=== PATIENT | male | born 1935 | race Caucasian/White ===

== ENCOUNTER 2022-05-07 10:49 | Outpatient (NON) | payer MEDICARE, SELFPAY | END 2022-05-07 10:50 | disposition home or self-care (01) | LOC: ANHLAB 05-08 10:53 | PROVIDERS: PCP Internal Medicine; Visit Provider Nurse Practitioner | DX: C44.01 Basal cell carcinoma of skin of lip (principal) | CPT/HCPCS: 88305 ==

== ENCOUNTER 2022-06-04 14:18 | Outpatient (NON) | payer MEDICARE, SELFPAY | END 2022-06-04 14:19 | disposition home or self-care (01) | LOC: ANHLAB 14:18 | PROVIDERS: PCP Internal Medicine; Visit Provider Nurse Practitioner | DX: C44.02 Squamous cell carcinoma of skin of lip (principal) | CPT/HCPCS: 88305; 88331 ==

== ENCOUNTER 2022-06-15 14:21 | Inpatient (IN) | payer MEDICARE, SELFPAY ==
--- NOTE | ~2022-06-15 | XR_ITS ---
EXAMINATION: XR surgery orthopedic DATE: 06/16/2022 8:00 MEDICAL MASSAGE THERAPIST INDICATION: RIGHT HIP PINNING WITH DHS . TECHNIQUE: 8 fluoroscopic images of the right hip were obtained during right hip pinning with DHS per formed by the surgeon. I was not present in the operating room. Fluoroscopy exposure time was 1 minut e 8 seconds seconds. Air Kerma 20.110 mGy. DAP 0.3987 mGym2. COMPARISON: X-ray dated 06/15/2022 FINDINGS: Multiple fluoroscopic images demonstrate hardware fixation of the right intertrochanteric fracture. IMPRESSION: Fluoroscopic documentation of right hip pinning with DHS. Please refer to the operative note for comp lete procedural details . Reviewed, dictated and finalized at location K. CAL MASSAGE THERAPIST IMPRESSION: Fluoroscopic documentation of right hip pinning with DHS. Please refer to the o perative note for complete procedural details .
--- NOTE | ~2022-06-15 | XR_ITS ---
EXAMINATION: XR hip RT 2V w AP pelvis DATE: 06/15/2022 15:13 INDICATION: Right hip pain post fall TECHNIQUE: Anteroposterior view of the pelvis and anteroposterior and cross-table lateral views of th e right hip were obtained. COMPARISON: None. FINDINGS: Oblique intratrochanteric fracture of the proximal right femur. There is minimal medial angulation wi th mild widening of the superolateral side of the fracture plane and measures approximately 7 mm and 4 mm separation at the inferomedial margin of the fracture. Left total hip arthroplasty in near-anatomic alignment. No other fractures identified. Mild osteoarth ritis at the right hip. 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 Brachytherapy seeds a t the prostate. IMPRESSION: 1. Minimal medial angulation of a nondisplaced intertrochanteric fracture the proximal right femur. Reviewed, dictated and finalized at location A. RACTOR BUYER IMPRESSION: 1. Minimal medial angulation of a nondisplaced intertrochanteric fracture the p roximal right femur.
--- NOTE | ~2022-06-15 | XR_ITS ---
EXAMINATION: XR chest 1V portable DATE: 06/15/2022 16:43 INDICATION: Chronic lymphocytic leukemia. Preop. TECHNIQUE: A single frontal view of the chest was obtained on 2 radiographs. COMPARISON: None. 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 There is mild elevation of left hemidiaphragm. There is mild atelectasis at the lung bases. No pleural effusion or pneumothorax. The heart size is normal. IMPRESSION: 1. Mild atelectasis at the lung bases. Reviewed, dictated and finalized at location A. RNET PROJECT MANAGER
--- NOTE | ~2022-06-15 | XR_ITS ---
EXAMINATION: XR knee RT 3V DATE: 06/15/2022 15:22 INDICATION: Right knee pain TECHNIQUE: Three views of the right knee were obtained. COMPARISON: 08/18/2018 FINDINGS: Again noted are changes of medial compartment arthroplasty. There is partial separation of the femoral component from the medial femoral condyle. There is no fracture. There is mild osteoarthr itis of the lateral and patellofemoral compartments. No joint effusion/synovitis. Calcified atherosc lerosis is noted. IMPRESSION: 1. Changes of medial compartment arthroplasty with partial separation of the femoral component from t he medial femoral condyle. Reviewed, dictated and finalized at location B. IGN BANKNOTE TELLER TRADER IMPRESSION: 1. Changes of medial compartment arthroplasty with partial separation of the fe moral component from the medial femoral condyle.
[2022-06-15 14:21] VITALS: BP 146/62; PULSE 93; RESP 18; TEMP 36.6; O2SAT 100
--- NOTE | 2022-06-15 14:50 | ED.FALL ---
HPI - Fall General Chief Complaint: Fall Stated Complaint: fall, hip and knee pain Time Seen by Provider: 06/15/22 14:40 History of Present Illness HPI Narrative: 86-year-old male here for evaluation of right hip pain and knee pain after a fall today. Patient states that he was reaching up to put a box of [employer] decorations away, when he lost his footing and fell backwards, striking his right hip and his right knee against the ground. He denies head injury or loss of consciousness. Patient states that he has been unable to bear weight ever since the accident and reports pain in his right SI region. Attempted Aleve without relief of his pain. Related Data Allergies Allergy/AdvReac Type Severity Reaction Status Date / Time No Known Allergies Allergy Unverified 07/04/18 10:50 Review of Systems Review of Systems: Gen.: Denies fevers or chills Eyes: Denies eye pain or visual change ENT: Denies congestion Respiratory: Denies shortness of breath or cough CV: Denies chest pain or palpitations GI: Denies abdominal pain nausea, emesis or diarrhea denies burning, urgency, frequency or hematuria Musculoskeletal: Reports right hip and low back pain. Neuro: Denies numbness, tingling, weakness or focal weakness Skin: Denies rash Except as documented, all other systems reviewed and negative PMFSH Past Medical History Medical History Closed intertrochanteric fracture of right femur Over weight Surgical History Surgical History History of right knee joint replacement Family History Family History Mother Family history of arthritis Social History Social History Smoking status: Never smoker Alcohol intake: current Exam Narrative: APPEARANCE: Well appearing, no pain in distress, well-nourished. Head: Normocephalic and atraumatic. EYES: PERRLA/EOMI, conjunctivae clear NOSE: No nasal drainage EARS: External ear normal in appearance THROAT: Oropharynx is clear. Mucous membranes are moist. NECK: Supple. No adenopathy, no masses. RESPIRATORY: Airway patent, respirations nonlabored. Clear to auscultation bilaterally, no rales, rhonchi, wheezing. CARDIOVASCULAR: 2+ DP and PT pulses bilaterally. Regular rate and rhythm without murmurs, rubs, or gallops. ABDOMINAL: Normoactive bowel sounds. Soft, nontender, nondistended. No rebound tenderness or guarding. MUSCULOSKELETAL: No bony tenderness to palpation along right hip, C, T or L-spine. Venous stasis changes noted to bilateral lower extremities, no edema. NEURO: Normal speech. No focal neurologic deficits. SKIN: Skin is warm and dry. No rashes. PSYCHIATRIC: Normal affect/mood.. Course Vital Signs Vital signs: Vital Signs Temperature 97.8 F 06/15/22 14:21 Pulse Rate 93 06/15/22 14:21 Respiratory Rate 18 06/15/22 14:21 Blood Pressure 146/62 H 06/15/22 14:21 Pulse Oximetry 100 06/15/22 14:21 Oxygen Delivery Room Air 06/15/22 14:21 Temperature 97.8 F 06/15/22 14:21 Pulse Rate 93 06/15/22 14:21 Respiratory Rate 18 06/15/22 14:21 Blood Pressure 146/62 H 06/15/22 14:21 Pulse Oximetry 100 06/15/22 14:21 Oxygen Delivery Room Air 06/15/22 14:21 MDM - Fall MDM Narrative Medical decision making narrative: 86-year-old male here for evaluation of right hip and knee pain after what sounds like a mechanical fall today. He has no bony tenderness to palpation but is unable to stand due to pain, no pain at rest. Neurovascularly intact distal to the area of pain. Patient has evidence of a nondisplaced intertrochanteric fracture of the right proximal femur. Spoke with Dr. Conley who agrees with plan for admission, will likely need ORIF. We will keep n.p.o. at midnight and place Garcia catheter. Spoke with Eli
--- NOTE | 2022-06-15 16:42 | ECG_ITS ---
Measurements Intervals [place] Rate: 85 P: MT: 0 QRS: 72 QRSD: 104 T: 35 QT: 354 QTc: 421 Interpretive Statements ATRIAL FIBRILLATION ABNORMAL RHYTHM ECG NO PREVIOUS ECG AVAILABLE FOR COMPARISON Electronically Signed On 06-16-2022 9:41:23 CVICU RN by Lowell Ray M.D.
--- NOTE | 2022-06-15 16:43 | P.PNAN_ITS ---
Anes - Eval Pre Procedure Procedure: Operation Date: 06/16/22 07:30 Proposed Procedures p ORIF Hip with DHS(Right) - Nacho Conley MD Date/Time: 06/15/22 16:43 Preop Diagnosis: Right hip IT Fracture Pre Op Diagnosis: fall, hip and knee pain Patient Data Age: 86 Gender: M Height: 1.88 m Weight: 90 kg Last Vital Signs Temp 97.8 F 06/15/22 14:21 Pulse 93 06/15/22 14:21 Resp 18 06/15/22 14:21 BP 146/62 H 06/15/22 14:21 Pulse Ox 100 06/15/22 14:21 O2 Del Method Room Air 06/15/22 14:21 Allergies Allergy/AdvReac Type Severity Reaction Status Date / Time No Known Allergies Allergy Unverified 07/04/18 10:50 Laboratory Tests 06/15/22 16:23 Influenza A (RT-PCR) Pending Influenza B (RT-PCR) Pending SARS-CoV-2 RNA (RT-PCR) Pending Patient hx anesthesia problems: none Family hx anesthesia problems: none Results Review: All pre-operative results and documents have been reviewed as part of the pre- operative evaluation. [facility] Past Medical History Medical History Closed intertrochanteric fracture of right femur Over weight Surgical History Surgical History History of right knee joint replacement Family History Family History Mother Family history of arthritis Social History Social History Smoking status: Never smoker Alcohol intake: current Exam Day of Procedure 06/15/22 16:43 Patient weight: overweight Neurological: alert and oriented
[2022-06-15 17:05] LABS: Influenza A QL RT-PCR Negative (Negative); Influenza B QL RT-PCR Negative (Negative); SARS-CoV-2 RNA PCR Negative
--- NOTE | 2022-06-15 17:07 | P.CONOP_ITS ---
Assessment and Plan Assessment and plan (1) Closed intertrochanteric fracture of right femur: Code(s): S72.141A - Displaced intertrochanteric fracture of right femur, initial encounter for closed fracture Status: Acute Plan Displaced intertrochanteric fracture, right hip. Good bone quality and anatomic reduction possible. Remarkably healthy. I reviewed the proposed procedure. Risks, benefits, and alternatives discussed. Proceed with ORIF right hip with DHS. History of Present Illness HPI Consult date: 06/15/22 Chief complaint: fall, hip and knee pain Narrative: Patient complains of acute right hip pain. Fell from standing height. Admitted through the emergency room for definitive management. No previous hip pain. Comfortable at rest. No numbness, tingling, or other associated symptoms. Review of Systems Review of Systems: Denies loss of consciousness. All systems reviewed & are unremarkable except as noted in HPI and below PMFSH Past Medical History Medical History Closed intertrochanteric fracture of right femur Over weight Surgical History Surgical History History of right knee joint replacement Family History Family History Mother Family history of arthritis Social History Social History Smoking status: Never smoker Alcohol intake: current Meds Home Medications and Allergies Allergies Allergy/AdvReac Type Severity Reaction Status Date / Time No Known Allergies Allergy Unverified 07/04/18 10:50 Vital Signs Vital Signs - 24 hr 06/15/22 14:21 Temperature 36.6 C Pulse Rate 93 Respiratory Rate 18 Blood Pressure 146/62 H Pulse Oximetry 100 Oxygen Delivery Room Air Exam Narrative: No lower extremity deformity. Const: General: no acute distress Eyes: General: appearance normal, both eyes and all related structures Resp: Effort & Inspection: normal respiratory effort GI: GI Palp: Yes Soft to palpation and No Guarding due to palpation present (GI) Urinary Catheter: Urinary Catheter: patent and draining and urine clear Skin: General skin exam: no rashes or lesions noted Neuro: Speech: normal speech Other: Wiggles toes well. Capillary refill brisk. Distal light touch sensation in tact. Dorsalis pedis pulse palpable. Extrem: Other: No edema. Psych: Mental Status: mental status grossly normal Results Labs Labs: All other labs normal. Quality VTE Prophylaxis VTE prophylaxis: mechanical ordered [facility] Consult Billing Inpatient Consult [id number] Consult Mod High (Patient seen in the ED.)
[2022-06-15 17:27] LABS: Basophils Absolute Auto 0.1 K/mm3 (0.0-0.1); Basophils Percent Auto 0.3 % (0.2-1.2); Hematocrit 39.4 % (42.0-52.0); Hemoglobin 13.3 g/dL (14.0-18.0); Immature Granulocyte Absolute 0.17 K/mm3 (0.00-0.031); Immature Granulocyte Percent A 0.8 % (0-0.5); Lymphocytes Absolute Auto 9.06 K/mm3 (0.9-3.2); Lymphocytes Percent Auto 40.7 % (18.3-44.2); Mean Corpuscular HGB Conc 33.8 g/dl (32-36); Mean Corpuscular Hemoglobin 31.8 pg (26-34); Mean Corpuscular Volume 94.3 fl (80-100); Monocytes Absolute Auto 1.3 K/mm3 (0.1-0.6); Monocytes Percent Auto 5.7 % (2.6-8.5); Neutrophils Absolute Auto 11.7 K/mm3 (1.3-6.7); Neutrophils Percent Auto 52.5 % (45.5-73.1); Nucleated Red Blood Cells Perc 0.1 % (0.0-0.2); Platelet Count Result 172 k/mm3 (150-375); Red Blood Count 4.18 M/mm3 (4.6-6.20); Red Cell Distribution Width 12.7 % (11.5-14.5); White Blood Count 22.3 K/mm3 (4.5-10.0)
[2022-06-15 17:35] LABS: Alanine Aminotransferase 17 U/L (6-50); Albumin Level 4.2 g/dL (3.5-5.1); Alkaline Phosphatase 54 U/L (38-126); Anion Gap 6 mmol/L (8-16); Aspartate Amino Transferase 28 U/L (17-59); Blood Urea Nitrogen 23 mg/dL (9-20); Carbon Dioxide 29 mmol/L (22-30); Chloride 95 mmol/L (98-107); Estimated CRCL calculation 49 ml/min; Estimated Glomerular Filt Rate > 60; Glucose 99 mg/dL (65-110); Potassium 4.7 mmol/L (3.4-5.0); Sodium 130 mmol/L (137-145)
[2022-06-15 18:59] VITALS: BP 137/86; PULSE 95; RESP 16; O2SAT 100
--- NOTE | 2022-06-15 18:59 | PC.NURSE ---
multiple attempts at ortega placement by myself and marvin clemons unsuccessful
--- NOTE | 2022-06-15 19:00 | ADMGEN ---
This patient, Jared Serrano, was admitted to 3 [facility] Surg Room 315-01. Patient/family oriented to hospital policies and general routines including ID bracelet, bed and alarms, visiting hours, pain management, procedures, bathroom and other care routines, personal items, smoking policy, room service/diet, and visiting hours. Information on how to activate the Rapid Response Team has been discussed. Patient/Family are encouraged to report perceived risks to care and to ask questions if they do not understand what they are told or what they should do.
[2022-06-15 19:17] VITALS: BP 141/75; PULSE 77; RESP 16; TEMP 36.4; O2SAT 99
[2022-06-15 19:18] VITALS: BMI 25.4
[2022-06-15 19:24] VITALS: BMI 25.5
--- NOTE | 2022-06-15 21:32 | PM.IMHP ---
H&P: HPI History of Present Illness Date/Time: 06/15/22 21:32 Chief Complaint: Fall Narrative: This is 86-year-old fairly healthy male patient who came into the emergency room with complaints of right hip pain after a fall. The patient stated that he was stacking up plastic containers of Thingies decorations and he lost his footing and fell backwards at a ground level fall. The patient stated that he struck his right hip in his right knee against the ground. He denies losing consciousness. The patient was unable to bear weight on that right leg he attempted Aleve without relief of discomfort. His white count is 22.3. His H&H is 13.3 and 39.4. His sodium is 130. He was negative for influenza A/B and COVID. Chest x-ray was read as mild atelectasis at the lung bases. Knee x-ray changes of medial compartment after plasty with partial separation of the femoral component from the medial femoral condyle. Hip and pelvis x-ray minimal medial angulation of a nondisplaced intertrochanteric fracture of the right proximal right femur. Dr. Conley has been consulted and has already talked to the patient. Patient is NPO at this time. He is complaining some discomfort at this point. The patient is being admitted to inpatient status on the date of service of 06/15/2022. Review of Systems Review of Systems: See HPI All systems reviewed & are unremarkable except as noted in HPI and below Constitutional: Constitutional: Reports as per HPI and Reports no additional constitutional complaints Eyes: Eyes: Reports as per HPI and Reports no additional eye complaints ENT: Reports system reviewed and no additional complaints, except as documented and Reports Normal hearing present Cardiovascular: Cardiovascular: Reports no additional cardiovascular complaints Respiratory: Respiratory: Reports no additional respiratory complaints and Reports no additional respiratory complaints Gastrointestinal: Gastrointestinal: Reports as per HPI and Reports no additional gastrointestinal complaints Musculoskeletal: Musculoskeletal: Reports no additional musculoskeletal complaints Integumentary/Breasts: Skin/Breast: Reports system reviewed and no additional complaints, except as docu and Reports as per HPI Neurologic: Reports system reviewed and no additional complaints, except as documented, Reports as per HPI and Reports Normal hearing present Psychiatric: Psychiatric: Reports no additional psychiatric complaints and Reports as per HPI Endocrine: Endocrine: Reports no additional endocrine complaints Hematologic/Lymphatic: Hematologic/Lymphatic: Reports no additional hematologic/lymphatic complaints Allergic/Immunologic: Allergic/Immunologic: Reports no additional allergic/immunologic complaints [facility] Past Medical History Medical History (Updated 06/15/22 @ 21:47 by Eli Velazquez NP) Closed intertrochanteric fracture of right femur History of partial replacement of left hip joint using bipolar prosthesis History of prostate cancer Hyperlipidemia Hypertension Osteoarthritis Over weight Surgical History Surgical History (Updated 06/15/22 @ 21:47 by Eli Velazquez NP) H/O arthroscopic knee surgery History of cataract extraction History of colonoscopy History of prostatectomy History of removal of pigmented skin lesion History of right knee joint replacement History of tonsillectomy and adenoidectomy History of total hip replacement Left hip Family History Family History (Updated 06/15/22 @ 21:51 by Eli Velazquez NP) Mother Family history of arthritis Sibling Cerebrovascular accident Sibling Brain cancer Social History Social History (Updated 06/15/22 @ 21:49 by Eli Velazquez NP) Social History: The patient is a and has a significant other for the last 10 years. The patient has 2 children. He is retired from [employer]. The patient stated that he quit smoking many years ago. He denies any marijuana or illici
[2022-06-15 21:43] VITALS: BP 134/77; PULSE 71; RESP 18; TEMP 36.5; O2SAT 96
[2022-06-15] MEDS: fentaNYL CITRATE INJ (*CRX) 100 MCG/2 ML VIAL 25 MCG IV PUSH (22:23)
[2022-06-16] VITALS (13 sets, daily range): BP systolic 82–146; BP diastolic 48–70; PULSE 68–84; RESP 10–18; TEMP 36.5–37.1; O2SAT 94–100
[2022-06-16 06:57] LABS: Add Urine Microscopic? NO; Appearance Urine Clear (Clear); Bilirubin Urine Negative (Negative); Blood Urine Negative (Negative); Color Urine Yellow (Yellow); Glucose Urine UA Negative (Negative); Ketones Urine Negative (Negative); Leukocyte Esterase Ur Negative LEU/UL (Negative); Nitrate Urine Negative (Negative); Protein Urine Negative (Negative); Urobilinogen Urine 0.2 mg/dL (<2.0)
[2022-06-16 07:02] LABS: Bacteria Urine Trace /hpf; Mucus Urine Rare /lpf; Squamous Epithelial Cell Urine Rare /hpf (Few)
--- NOTE | 2022-06-16 07:47 | WPDHPUPDATE1 ---
History and Physical Update Update Date/Time: 06/16/22 07:47 History and Physical has been reviewed, including an updated exam of the patient. There are NO changes in the patient's condition. Risks, benefits, and alternatives have been discussed and questions answered. Patient agrees to proceed with procedure.
--- NOTE | 2022-06-16 07:48 | WPDANESEPPF ---
Anes - Initial Pre Proc Eval Procedure: Operation Date: 06/16/22 07:30 Proposed Procedures p ORIF Hip with DHS(Right) - Nacho Conley MD Date/Time: 06/16/22 07:48 Surgeon: Lowell Jay MD Pre Op Diagnosis: Right Intertrochanteric Fracture Patient Data Age: 86 Gender: M Height: 1.88 m Weight: 90.2 kg Last Vital Signs Temp 36.5 C 06/16/22 05:53 Pulse 73 06/16/22 05:53 Resp 18 06/16/22 05:53 BP 133/69 06/16/22 05:53 Pulse Ox 94 06/16/22 05:53 O2 Del Method Room Air 06/15/22 20:00 Allergies Allergy/AdvReac Type Severity Reaction Status Date / Time No Known Allergies Allergy Unverified 07/04/18 10:50 Home Medications Medication Instructions Recorded Confirmed Type atorvastatin 20 mg tablet 20 mg PO DAILY 06/15/22 06/15/22 History celecoxib 200 mg capsule 200 mg PO BID 06/15/22 06/15/22 History lisinopril 20 1 tablet PO DAILY 06/15/22 06/15/22 History mg-hydrochlorothiazide 12.5 mg tablet naproxen sodium 220 mg tablet 440 mg PO DAILY 06/15/22 06/15/22 History (Aleve) Laboratory Tests 06/15/22 06/15/22 06/15/22 16:23 17:11 17:11 WBC 22.3 K/mm3 H K/mm3 (4.5-10.0) RBC 4.18 M/mm3 L M/mm3 (4.6-6.20) Hgb 13.3 g/dL L g/dL (14.0-18.0) Hct 39.4 % L % (42.0-52.0) MCV 94.3 fl fl (80-100) MCH 31.8 pg pg (26-34) MCHC 33.8 g/dl g/dl (32-36) RDW 12.7 % % (11.5-14.5) Plt Count 172 k/mm3 k/mm3 (150-375) MPV 9.0 fl fl (7.4-10.4) Immature Gran % (Auto) 0.8 % H % (0-0.5) Neut % (Auto) 52.5 % % (45.5-73.1) Lymph % (Auto) 40.7 % % (18.3-44.2) [place] % (Auto) 5.7 % % (2.6-8.5) Eos % (Auto) 0.0 % % (0-4.4) Baso % (Auto) 0.3 % % (0.2-1.2) Lymph # (Auto) 9.06 K/mm3 H K/mm3 (0.9-3.2) [place] # (Auto) 1.3 K/mm3 H K/mm3 (0.1-0.6) Eos # (Auto) 0.0 K/mm3 K/mm3 (0-0.3) Baso # (Auto) 0.1 K/mm3 K/mm3 (0.0-0.1) Abs Immat Gran (auto) 0.17 K/mm3 H K/mm3 (0.00-0.031) Absolute Neuts (auto) 11.7 K/mm3 H K/mm3 (1.3-6.7) Absolute Nucleated RBC 0.0 K/mm3 K/mm3 (0.0-0.012) Nucleated RBC % 0.1 % % (0.0-0.2) Sodium 130 mmol/L L mmol/L (137-145) Potassium 4.7 mmol/L mmol/L (3.4-5.0) Chloride 95 mmol/L L mmol/L (98-107) Carbon Dioxide 29 mmol/L mmol/L (22-30) Anion Gap 6 mmol/L L mmol/L (8-16) BUN 23 mg/dL H mg/dL (9-20) Creatinine 1.10 mg/dL mg/dL (0.7-1.3) Estim Creat Clear Calc 49 ml/min ml/min Estimated GFR > 60 (59 - ) Glucose 99 mg/dL mg/dL (65-110) Calcium 9.0 mg/dL mg/dL (8.4-10.2) Total Bilirubin 1.0 mg/dL mg/dL (0.2-1.3) AST 28 U/L U/L (17-59) ALT 17 U/L U/L (6-50) Alkaline Phosphatase 54 U/L U/L (38-126) Total Protein 6.0 g/dL L g/dL (6.3-8.2) Albumin 4.2 g/dL g/dL (3.5-5.1) Urine Color Urine Appearance Urine pH Ur Specific Rodney Urine Protein Urine Glucose (UA) Urine Ketones Ur Blood (Man) Urine Nitrate Urine Bilirubin Urine Urobilinogen Leukocyte Esterase Rfl Urine RBC Urine WBC Ur Squamous Epith Cells Urine Bacteria Urine Mucus Influenza A (RT-PCR) Negative (Negative) Influenza B (RT-PCR) Negative (Negative) SARS-CoV-2 RNA (RT-PCR) Negative Blood Type Antibody Screen 06/15/22 06/16/22 17:41 06:51 WBC RBC Hgb Hct MCV MCH MCHC RDW Plt Count MPV
[2022-06-16] MEDS: LACTATED RINGERS 1,000 ML 30 ML IV CONT (07:55)
[2022-06-16] MEDS: ceFAZolin 2 GM/D5W 50 ML 2 GM/50 ML BAG IVPB ×3 (08:01→23:10)
[2022-06-16] MEDS: TRANEXAMIC ACID 1,000MG/ISO100 1,000 MG/100 ML BAG 200 MG IVPB (08:12)
[2022-06-16] MEDS: BUPIVACAINE/EPINEPHRINE 0.5% 10 ML VIAL 30 ML INFILTRATE (09:30)
--- NOTE | 2022-06-16 09:55 | W.PM.PROC2 ---
Procedure Note - Detailed Date of Procedure 06/16/22 Pre-op Diagnosis Right Intertrochanteric Hip Fracture Post-op Diagnosis Same Procedure Performed ORIF right hip intertrochanteric fracture with dynamic hip screw. Surgeon Nacho Conley MD Anesthesia General Findings Anatomic reduction with internal rotation. Fracture minimally displaced with remarkably good bone quality for his age. Description of Procedure Preoperative antibiotics were given. A general anesthetic administered. Placed on the fracture table carefully. Placed on the fracture table. Gentle longitudinal traction and internal rotation. Anatomic reduction obtained. Reduction and implant placement confirmed with biplanar fluoroscopy throughout the procedure. The hip was prepped and draped in the usual sterile fashion with a sterile curtain. A longitudinal incision created at the side of the femur. The deep fascia was incised. The vastus lateralis was split. The proximal femur was exposed and a Hohmann placed. The 135 degree guide was placed along the lateral femur and a wire was placed into the center of the femoral head. This was reamed to 115 mm. The lag screw was placed with good purchase. The 2 hole plate fit very nicely and was secured with 2, 44 mm large fragment screws. The compression screw was placed. The wound was irrigated with saline. The wound was closed with a 1. Running Vicryl suture at the vastus lateralis and at the deep fascia. The subcutaneous tissues were closed with interrupted 1. Vicryl suture followed by 2 0 Vicryl suture in the dermis. Zane placed on the skin with Xeroform gauze. Sterile dressing applied. Estimated blood loss 130 mL. 30 mL of 0.5% Marcaine with epinephrine injected at the femur and subcutaneous tissues. The patient was carefully transferred to the recovery room. No complications. Implants Diffuse Synthes DHS plate 2 hole. 135 degree angle. 115 mm lag screw. 44 mm large fragment screws. Estimated Blood Loss -130.0 Urine Output 575 Pathology None sent Complications No immediate complications Condition Stable Disposition PACU [facility] Billing Surgery - Charge Forward: Surgery Billing
--- NOTE | 2022-06-16 11:15 | PM.IMPN ---
Subjective Date/time seen: 06/16/221114 Interval history: 06/16/221114 Patient just got back from surgery. Patient stated that he is having a little bit of pain but is doing okay. He denies any chest pain, shortness a breath, nausea, vomiting, diarrhea, constipation, weakness or fatigue. Patient did complain of a little bit of knee pain in the right leg however reiterated to him that the leg will be in pain due to the surgery that she has had. Girlfriend or was present. All questions were answered. 06/15/22? 21:32 This is 86-year-old fairly healthy male patient who came into the emergency room with complaints of right hip pain after a fall.? The patient stated that he was stacking up plastic containers of [employer] and he lost his footing and fell backwards at a ground level fall.? The patient stated that he struck his right hip in his right knee against the ground.? He denies losing consciousness.? The patient was unable to bear weight on that right leg he attempted Aleve without relief of discomfort.? His white count is 22.3.? His H&H is 13.3 and 39.4.? His sodium is 130.? He was negative for influenza A/B and COVID.? Chest x-ray was read as mild atelectasis at the lung bases.? Knee x-ray changes of medial compartment after plasty with partial separation of the femoral component from the medial femoral condyle.? Hip and pelvis x-ray minimal medial angulation of a nondisplaced intertrochanteric fracture of the right proximal right femur.? Dr. Conley has been consulted and has already talked to the patient.? Patient is NPO at this time.? He is complaining some discomfort at this point.? The patient is being admitted to inpatient status on the date of service of 06/15/2022.? Objective Data Vital Signs Vital Signs: Vital Signs - 24 hr 06/15/22 14:21 06/15/22 18:59 06/15/22 19:17 Temperature 97.8 F 97.6 F Pulse Rate 93 95 77 Respiratory Rate 18 16 16 Blood Pressure 146/62 H 137/86 141/75 H Pulse Oximetry 100 100 99 Oxygen Delivery Room Air Oxygen Flow Rate 06/15/22 21:43 06/15/22 20:00 06/16/22 05:53 Temperature 97.7 F 97.7 F Pulse Rate 71 73 Respiratory Rate 18 18 Blood Pressure 134/77 133/69 Pulse Oximetry 96 94 Oxygen Delivery Room Air Oxygen Flow Rate 06/16/22 09:37 06/16/22 09:50 06/16/22 10:05 Temperature 97.8 F Pulse Rate 75 81 76 Respiratory Rate 10 L 13 17 Blood Pressure 96/57 L 135/70 139/70 Pulse Oximetry 100 100 95 Oxygen Delivery Simple Face Mask Simple Face Mask Room Air Oxygen Flow Rate 8 8 06/16/22 10:20 06/16/22 10:35 06/16/22 12:43 Temperature Pulse Rate 73 81 Respiratory Rate 11 L 12 Blood Pressure 139/69 146/64 H Pulse Oximetry 97 94 Oxygen Delivery Room Air Room Air Room Air Oxygen Flow Rate 06/16/22 13:17 Temperature Pulse Rate Respiratory Rate Blood Pressure 82/48 L Pulse Oximetry Oxygen Delivery Oxygen Flow Rate Intake/Output Intake/Output: Intake & Output 06/13/22 06/14/22 06/15/22 06/16/22 23:59 23:59 23:59 23:59 Intake Total 250 Output Total 1700 Balance -1450 Meds/Results Medications: Active Medications Generic Name Dose Route Start Last Admin Trade Name Freq PRN Reason Stop Dose Admin Acetaminophen 650 mg 06/16/22 10:43 Acetaminophen 325 Mg Tablet PO Q6H PRN Mild Pain (1-3) or Fever Cyclobenzaprine HCl 10 mg 06/16/22 10:43 Cyclobenzaprine Hcl 10 Mg Tablet PO Q8H PRN Muscle Spasm Famotidine 20 mg 06/16/22 12:00 06/16/22 13:10 Famotidine 20 Mg Tablet PO 20 mg Q12HR RYAN Administration Fentanyl Citrate 25 mcg 06/15/22 21:29 06/15/22 22:23 Fentanyl Citrate Inj (*Crx) 100 Mcg/2 Ml Vial IV PUSH 25 mcg Q4H PRN Administration Pain Rated 7-10 Fentanyl Citrate 25 mcg 06/16/22 07:48 Fentanyl Citrate Inj (*Crx) 100 Mcg/2 Ml Vial IV PUSH Q2M PRN Pain Hydralazine HCl 10 mg 06/15/22 21:30 Hydralazine Hcl 20 Mg
--- NOTE | 2022-06-16 11:15 | PM.IMPN ---
Progress Note: A&P Assessment and Plan (1) Closed intertrochanteric fracture of right femur: Code(s): S72.141A - Displaced intertrochanteric fracture of right femur, initial encounter for closed fracture Status: Acute Assessment and Plan: Fell while shifting some cargo Knee x-ray changes of medial compartment after plasty with partial separation of the femoral component from the medial femoral condyle.? Hip and pelvis x-ray minimal medial angulation of a nondisplaced intertrochanteric fracture of the right proximal right femur. Ortho consulted POD 0 post op care per ortho Pain medications on board DVT Xarelto per ortho PT/OT Weight bearing as tolerated (2) Hypertension: Code(s): I10 - Essential (primary) hypertension Status: Acute Assessment and Plan: BP 82/48 Continue to hold the lisinopril/HCTZ Trend BP Adjust therapy as indicate (3) Hyperlipidemia: Code(s): E78.5 - Hyperlipidemia, unspecified Status: Acute Assessment and Plan: Continue home medications Lipid panel (4) Osteoarthritis: Code(s): M19.90 - Unspecified osteoarthritis, unspecified site Status: Acute Assessment and Plan: Continue home medications (5) New onset a-fib: Code(s): I48.91 - Unspecified atrial fibrillation Status: Acute Assessment and Plan: EKG shows Afib was regular per auscultation Repeat EKG ordered Currently on Xarelto consider adding cards Time Spent With Patient Time with patient: Greater than 35 minutes Subjective Date/time seen: 06/16/22 111 Interval history: 06/16/221114 Patient just got back from surgery. Patient stated that he is having a little bit of pain but is doing okay. He denies any chest pain, shortness a breath, nausea, vomiting, diarrhea, constipation, weakness or fatigue. Patient did complain of a little bit of knee pain in the right leg however reiterated to him that the leg will be in pain due to the surgery that she has had. Girlfriend or was present. All questions were answered. 06/15/22? 21:32 This is 86-year-old fairly healthy male patient who came into the emergency room with complaints of right hip pain after a fall.? The patient stated that he was stacking up plastic containers of [employer] and he lost his footing and fell backwards at a ground level fall.? The patient stated that he struck his right hip in his right knee against the ground.? He denies losing consciousness.? The patient was unable to bear weight on that right leg he attempted Aleve without relief of discomfort.? His white count is 22.3.? His H&H is 13.3 and 39.4.? His sodium is 130.? He was negative for influenza A/B and COVID.? Chest x-ray was read as mild atelectasis at the lung bases.? Knee x-ray changes of medial compartment after plasty with partial separation of the femoral component from the medial femoral condyle.? Hip and pelvis x-ray minimal medial angulation of a nondisplaced intertrochanteric fracture of the right proximal right femur.? Dr. Conley has been consulted and has already talked to the patient.? Patient is NPO at this time.? He is complaining some discomfort at this point.? The patient is being admitted to inpatient status on the date of service of 06/15/2022.? Review of Systems Review of Systems: All systems reviewed & are unremarkable except as noted in HPI and below Exam Narrative: General: well-nourished, well-appearing 86-year-old male, sitting up in bed, comfortable, NARD Neuro: awake, alert and oriented x4, speech clear, no focal neuro deficits noted HEENMT: normocephalic, atraumatic, EOMI, sclerae anicteric, moist oral mucosa Respiratory: Clear to auscultation bilaterally without crackles, rhonchi or wheezes, nonlabored breathing Cardio: regular rate, regular rhythm with S1-S2 Abdomen: nondiste
[2022-06-16 12:52] LABS: Basophils Percent Auto 0.2 % (0.2-1.2); Hematocrit 42.9 % (42.0-52.0); Hemoglobin 14.1 g/dL (14.0-18.0); Lymphocytes Absolute Auto 9.19 K/mm3 (0.9-3.2); Mean Corpuscular HGB Conc 32.9 g/dl (32-36); Mean Corpuscular Volume 97.3 fl (80-100); Mean Platelet Volume 8.8 fl (7.4-10.4); Monocytes Absolute Auto 0.3 K/mm3 (0.1-0.6); Monocytes Percent Auto 1.4 % (2.6-8.5); Neutrophils Absolute Auto 10.7 K/mm3 (1.3-6.7); Neutrophils Percent Auto 52.4 % (45.5-73.1); Nucleated Red Blood Cells Perc 0.1 % (0.0-0.2); Platelet Count Result 155 k/mm3 (150-375); Red Blood Count 4.41 M/mm3 (4.6-6.20); White Blood Count 20.4 K/mm3 (4.5-10.0)
[2022-06-16 13:06] LABS: Alanine Aminotransferase 18 U/L (6-50); Albumin Level 4.1 g/dL (3.5-5.1); Alkaline Phosphatase 56 U/L (38-126); Anion Gap 6 mmol/L (8-16); Aspartate Amino Transferase 36 U/L (17-59); Blood Urea Nitrogen 17 mg/dL (9-20); Calcium 8.7 mg/dL (8.4-10.2); Carbon Dioxide 30 mmol/L (22-30); Chloride 95 mmol/L (98-107); Estimated CRCL calculation 59 ml/min; Estimated Glomerular Filt Rate > 60; Glucose 119 mg/dL (65-110); Magnesium 1.9 mg/dL (1.6-2.3); Potassium 4.7 mmol/L (3.4-5.0); Sodium 131 mmol/L (137-145)
[2022-06-16] MEDS: SENNA/DOCUSATE SODIUM TABLET 2 TAB PO ×2 (13:09→17:56)
[2022-06-16] MEDS: FAMOTIDINE 20 MG TABLET PO ×2 (13:10→20:20)
[2022-06-16 13:55] LABS: Thyroid Stimulating Hormone Reflex 0.652 uIU/mL (0.465-4.68)
--- NOTE | 2022-06-16 14:36 | ECG_ITS ---
Measurements Intervals [place] Rate: 84 P: [place]: 0 QRS: 55 QRSD: 100 T: 38 QT: 361 QTc: 427 Interpretive Statements ATRIAL FIBRILLATION ABNORMAL ECG COMPARED TO ECG 06/15/2022 17:17:13 NO SIGNIFICANT CHANGES Electronically Signed On 06-17-2022 7:37:58 BLOWER BLAST FURNACE by Tre Nieves D.O.
[2022-06-16] MEDS: RIVAROXABAN 10 MG TABLET PO (17:56)
[2022-06-16] MEDS: ACETAMINOPHEN 325 MG TABLET 650 MG PO (18:00)
[2022-06-17 04:28] VITALS: BP 100/55; PULSE 75; RESP 16; TEMP 36.2; O2SAT 94
[2022-06-17 06:46] LABS: Basophils Percent Auto 0.1 % (0.2-1.2); Eosinophils Absolute Auto 0.1 K/mm3 (0-0.3); Eosinophils Percent Auto 0.3 % (0-4.4); Hematocrit 36.3 % (42.0-52.0); Hemoglobin 11.9 g/dL (14.0-18.0); Immature Granulocyte Absolute 0.13 K/mm3 (0.00-0.031); Immature Granulocyte Percent A 0.6 % (0-0.5); Lymphocytes Absolute Auto 10.43 K/mm3 (0.9-3.2); Lymphocytes Percent Auto 49.3 % (18.3-44.2); Mean Corpuscular HGB Conc 32.8 g/dl (32-36); Mean Corpuscular Hemoglobin 31.4 pg (26-34); Mean Corpuscular Volume 95.8 fl (80-100); Mean Platelet Volume 9.1 fl (7.4-10.4); Monocytes Absolute Auto 1.6 K/mm3 (0.1-0.6); Monocytes Percent Auto 7.4 % (2.6-8.5); Neutrophils Absolute Auto 8.9 K/mm3 (1.3-6.7); Neutrophils Percent Auto 42.3 % (45.5-73.1); Platelet Count Result 153 k/mm3 (150-375); Red Blood Count 3.79 M/mm3 (4.6-6.20); White Blood Count 21.2 K/mm3 (4.5-10.0)
[2022-06-17 07:36] LABS: Anion Gap 4 mmol/L (8-16); Blood Urea Nitrogen 21 mg/dL (9-20); Calcium 8.3 mg/dL (8.4-10.2); Carbon Dioxide 29 mmol/L (22-30); Chloride 94 mmol/L (98-107); Estimated CRCL calculation 53 ml/min; Estimated Glomerular Filt Rate > 60; Glucose 100 mg/dL (65-110); Potassium 4.2 mmol/L (3.4-5.0); Sodium 127 mmol/L (137-145)
--- NOTE | 2022-06-17 07:48 | WPDANESPN ---
Anes - Prog Note Post-Op Date/Time: 06/17/22 07:48 Cardiovascular status: normal Respiratory status: normal Airway patency: baseline Mental status: baseline Post-Op hydration status: normal Vital Signs: Last Vital Signs Temp 36.2 C L 06/17/22 04:28 Pulse 75 06/17/22 04:28 Resp 16 06/17/22 04:28 BP 100/55 L 06/17/22 04:28 Pulse Ox 94 06/17/22 04:28 O2 Del Method Room Air 06/16/22 12:43 O2 Flow Rate 8 06/16/22 09:50 Pain Score (VAS): <3 I/O: Intake & Output 06/16/22 06/16/22 06/17/22 15:59 23:59 07:59 Intake Total 490 240 200 Output Total 575 400 Balance -85 240 -200 Laboratory Tests 06/17/22 06:35 06/16/22 06/16/22 06/16/22 12:42 12:43 12:43 WBC 20.4 H RBC 4.41 L Hgb 14.1 Hct 42.9 MCV 97.3 MCH 32.0 MCHC 32.9 RDW 13.0 Plt Count 155 MPV 8.8 Immature Gran % (Auto) 1.0 H Neut % (Auto) 52.4 Lymph % (Auto) 45.0 H [place] % (Auto) 1.4 L Eos % (Auto) 0.0 Baso % (Auto) 0.2 Lymph # (Auto) 9.19 H [place] # (Auto) 0.3 Eos # (Auto) 0.0 Baso # (Auto) 0.0 Abs Immat Gran (auto) 0.20 H Absolute Neuts (auto) 10.7 H Absolute Nucleated RBC 0.0 Nucleated RBC % 0.1 Sodium 131 L Potassium 4.7 Chloride 95 L Carbon Dioxide 30 Anion Gap 6 L BUN 17 Creatinine 0.90 Estim Creat Clear Calc 59 Estimated GFR > 60 Glucose 119 H Lactic Acid 1.0 Calcium 8.7 Magnesium 1.9 Total Bilirubin 1.0 AST 36 ALT 18 Alkaline Phosphatase 56 Total Protein 6.0 L Albumin 4.1 TSH (Reflex) 06/16/22 06/17/22 06/17/22 12:43 06:35 06:35 WBC Pending RBC Pending Hgb Pending Hct Pending MCV Pending MCH Pending MCHC Pending RDW Pending Plt Count Pending MPV Pending Immature Gran % (Auto) Pending Neut % (Auto) Pending Lymph % (Auto) Pending [place] % (Auto) Pending Eos % (Auto) Pending Baso % (Auto) Pending Lymph # (Auto) Pending [place] # (Auto) Pending Eos # (Auto) Pending Baso # (Auto) Pending Abs Immat Gran (auto) Pending Absolute Neuts (auto) Pending Absolute Nucleated RBC Pending Nucleated RBC % Pending Sodium 127 L Potassium 4.2 Chloride 94 L Carbon Dioxide 29 Anion Gap 4 L BUN 21 H Creatinine 1.00 Estim Creat Clear Calc 53 Estimated GFR > 60 Glucose 100 Lactic Acid Calcium 8.3 L Magnesium 2.0 Total Bilirubin AST ALT Alkaline Phosphatase Total Protein Albumin TSH (Reflex) 0.652 Patient Feedback: Patient satisfied with anesthetic care.
[2022-06-17 08:22] VITALS: BP 101/65; PULSE 88; RESP 18; TEMP 36.2; O2SAT 90
[2022-06-17] MEDS: SENNA/DOCUSATE SODIUM TABLET 2 TAB PO (08:41)
[2022-06-17] MEDS: FAMOTIDINE 20 MG TABLET PO ×2 (08:42→20:05)
[2022-06-17] MEDS: ceFAZolin 2 GM/D5W 50 ML 2 GM/50 ML BAG IVPB (08:42)
[2022-06-17] MEDS: ACETAMINOPHEN 325 MG TABLET 650 MG PO ×2 (08:42→17:09)
[2022-06-17] MEDS: polyethylene glycoL 3350 17 GM POWD.PACK PO (08:42)
[2022-06-17 08:44] LABS: Platelet Estimate Adequate (Adequate)
[2022-06-17 08:45] LABS: Anisocytosis 1+ (NORMAL); Ovalocytes 1+ (NORMAL); Schistocytes None Seen (NORMAL)
[2022-06-17 11:50] VITALS: BP 91/63; PULSE 108; RESP 20; TEMP 36.1; O2SAT 96
--- NOTE | 2022-06-17 12:00 | PM.IMPN ---
Progress Note: A&P Assessment and Plan (1) Closed intertrochanteric fracture of right femur: Code(s): S72.141A - Displaced intertrochanteric fracture of right femur, initial encounter for closed fracture Status: Acute Assessment and Plan: Fell while shifting some cargo Knee x-ray changes of medial compartment after plasty with partial separation of the femoral component from the medial femoral condyle.? Hip and pelvis x-ray minimal medial angulation of a nondisplaced intertrochanteric fracture of the right proximal right femur. Ortho consulted POD 1 post op care per ortho Pain medications on board DVT Xarelto per ortho PT/OT Weight bearing as tolerated (2) Hypertension: Code(s): I10 - Essential (primary) hypertension Status: Acute Assessment and Plan: BP 100/58 Continue to hold the lisinopril/HCTZ Trend BP Adjust therapy as indicate (3) Hyperlipidemia: Code(s): E78.5 - Hyperlipidemia, unspecified Status: Acute Assessment and Plan: Continue home medications Lipid panel (4) Osteoarthritis: Code(s): M19.90 - Unspecified osteoarthritis, unspecified site Status: Acute Assessment and Plan: Continue home medications (5) New onset a-fib: Code(s): I48.91 - Unspecified atrial fibrillation Status: Acute Assessment and Plan: EKG shows Afib was regular per auscultation Repeat EKG ordered Currently on Xarelto will need to be increased in 2 weeks post op Time Spent With Patient Time with patient: Greater than 35 minutes Subjective Date/time seen: 06/17/22 1200 Interval history: 06/17/22 1200 Patient is doing well today. He was up in a chair. He denies any chest pain, shortness of breath, nausea, vomiting, diarrhea, constipation, weakness, and fatigue. Talked to him about his WBC. He does have an MD that follow with him. 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 Otherwise he feels ok. A repeat EKG did show new onset of afib on Xarelto that will need to be increased in roughly 4 weeks 06/16/22 1115 Patient just got back from surgery. Patient stated that he is having a little bit of pain but is doing okay. He denies any chest pain, shortness a breath, nausea, vomiting, diarrhea, constipation, weakness or fatigue. Patient did complain of a little bit of knee pain in the right leg however reiterated to him that the leg will be in pain due to the surgery that she has had. Girlfriend or was present. All questions were answered. 06/15/22? 21:32 This is 86-year-old fairly healthy male patient who came into the emergency room with complaints of right hip pain after a fall.? The patient stated that he was stacking up plastic containers of [employer] decorations and he lost his footing and fell backwards at a ground level fall.? The patient stated that he struck his right hip in his right knee against the ground.? He denies losing consciousness.? The patient was unable to bear weight on that right leg he attempted Aleve without relief of discomfort.? His white count is 22.3.? His H&H is 13.3 and 39.4.? His sodium is 130.? He was negative for influenza A/B and COVID.? Chest x-ray was read as mild atelectasis at the lung bases.? Knee x-ray changes of medial compartment after plasty with partial separation of the femoral component from the medial femoral condyle.? Hip and pelvis x-ray minimal medial angulation of a nondisplaced intertrochanteric fracture of the right proximal right femur.? Dr. Conley has been consulted and has already talked to the patient.? Patient is NPO at this time.? He is complaining some discomfort at this point.? The patient is being admitted to inpatient status on the date of service of 06/15/2022.? Review of Systems Review of Systems: All systems reviewed & are unremarkable except as noted in HPI
[2022-06-17 12:01] VITALS: BP 100/58
--- NOTE | 2022-06-17 14:25 | PM.PNORT ---
Progress Note: A&P Assessment and Plan (1) Closed intertrochanteric fracture of right femur: Code(s): S72.141A - Displaced intertrochanteric fracture of right femur, initial encounter for closed fracture Status: Acute (2) New onset a-fib: Code(s): I48.91 - Unspecified atrial fibrillation Status: Acute Plan Doing well postoperative day 1 status post ORIF of the right hip. Plan for rehab stay. He has been unsteady on his feet recently which may have contributed to this recent fall. He was in outpatient therapy previously. Okay to discharge when medically stable. Plan for anticoagulation 10 mg role toe for 30 days. Consider increasing the dose after 1-2 weeks if deemed necessary to treat the atrial fibrillation. Subjective Subjective Date/Time Seen: 06/17/22 14:25 Interval history: ? Moderate pain at rest rated 5/10.? Using Tylenol.? Mobilizing well.? AFib stable.? Exam Narrative: Wound healing well without significant drainage.? Suture line intact.? Wiggles toes.? Calf nontender.? No distal edema.? Alert oriented x3.? Afebrile.? Vital signs stable.? Objective Data Vital Signs Vital Signs: Vital Signs - 24 hr 06/16/22 20:26 06/16/22 23:53 06/17/22 04:28 Temperature 36.6 C 36.6 C 36.2 C L Pulse Rate 84 84 75 Respiratory Rate 16 16 16 Blood Pressure 105/50 L 100/48 L 100/55 L Pulse Oximetry 98 94 94 Oxygen Delivery 06/17/22 08:22 06/17/22 08:00 06/17/22 11:50 Temperature 36.2 C L 36.1 C L Pulse Rate 88 108 H Respiratory Rate 18 20 Blood Pressure 101/65 91/63 L Pulse Oximetry 90 96 Oxygen Delivery Room Air 06/17/22 12:01 06/17/22 12:19 Temperature Pulse Rate Respiratory Rate Blood Pressure 100/58 L Pulse Oximetry Oxygen Delivery Room Air Intake/Output Intake/Output: Intake & Output 06/14/22 06/15/22 06/16/22 06/17/22 23:59 23:59 23:59 23:59 Intake Total 780 1360 Output Total 1700 500 Balance -920 860 Meds/Results Medications: Active Medications Generic Name Dose Route Start Last Admin Trade Name Freq PRN Reason Stop Dose Admin Acetaminophen 650 mg 06/16/22 10:43 06/17/22 08:42 Acetaminophen 325 Mg Tablet PO 650 mg Q6H PRN Administration Mild Pain (1-3) or Fever Cyclobenzaprine HCl 10 mg 06/16/22 10:43 Cyclobenzaprine Hcl 10 Mg Tablet PO Q8H PRN Muscle Spasm Famotidine 20 mg 06/16/22 12:00 06/17/22 08:42 Famotidine 20 Mg Tablet PO 20 mg Q12HR RYAN Administration Fentanyl Citrate 25 mcg 06/15/22 21:29 06/15/22 22:23 Fentanyl Citrate Inj (*Crx) 100 Mcg/2 Ml Vial IV PUSH 25 mcg Q4H PRN Administration Pain Rated 7-10 Fentanyl Citrate 25 mcg 06/16/22 07:48 Fentanyl Citrate Inj (*Crx) 100 Mcg/2 Ml Vial IV PUSH Q2M PRN Pain Hydralazine HCl 10 mg 06/15/22 21:30 Hydralazine Hcl 20 Mg/Ml Vial IV PUSH Q8H PRN Blood Pressure - High Lactated Ringer's 1,000 mls @ 30 mls/hr 06/15/22 17:05 06/16/22 17:16 Lr - Lactated Ringers Iv IV CONT Not Given .Q24H RYAN Lorazepam 0.5 mg 06/15/22 21:29 Lorazepam Inj (*Crx) 2 Mg/Ml Vial IV PUSH Q6H PRN Anxiety Naloxone HCl 0.1 mg 06/16/22 10:43 Naloxone Hcl 0.4 Mg/Ml Vial IV PUSH Q2M PRN Opiate Reversal Oxycodone HCl 5 mg 06/16/22 10:43 Oxycodone Hcl (*Crx) 5 Mg Tab Ir PO Q4H PRN Pain Rated 7-10 Oxycodone HCl 2.5 mg 06/16/22 10:43 Oxycodone Hcl (*Crx) 2.5 Mg Tab Ir PO Q4H PRN Pain Rated 4-6 Polyethylene Glycol 17 gm 06/16/22 12:00 06/17/22 08:42 Polyethylene Glycol 3350 17 Gm Powd.Pack PO 17 gm QAM RYAN Administration Rivaroxaban 10 mg 06/16/22 17:00 06/16/22 17:56 Rivaroxaban 10 Mg Tablet PO 10 mg DAILY@17 RYAN Administration Senna/Docusate Sodium 2 tab 06/16/22 12:00 06/17/22 08:41 Senna/Docusate Sodium Tablet PO 2 tab BID RYAN Administration Radiology Results: ITS Impressions Hip/Pelvis X-
[2022-06-17 14:57] LABS: Creatinine Urine 140.4 mg/dL; Urea Random Urine 574 MG/DL
[2022-06-17 14:59] LABS: Sodium Urine Random 70 meq/L
[2022-06-17] MEDS: RIVAROXABAN 10 MG TABLET PO (17:08)
[2022-06-17 20:00] VITALS: BP 98/48; PULSE 74; RESP 18; TEMP 36.8; O2SAT 94
[2022-06-17] MEDS: LACTATED RINGERS 1,000 ML 30 ML IV CONT (20:06)
[2022-06-17 20:39] VITALS: BP 100/60
[2022-06-18] VITALS: BP 106/63; PULSE 76; RESP 18; TEMP 36.5; O2SAT 94
[2022-06-18 05:50] VITALS: BP 109/65; PULSE 81; RESP 18; TEMP 36.5; O2SAT 95
[2022-06-18] MEDS: FAMOTIDINE 20 MG TABLET PO ×2 (08:16→20:42)
[2022-06-18] MEDS: oxyCODONE HCL (*CRX) 2.5 MG TAB IR PO (08:20)
--- NOTE | 2022-06-18 09:30 | PM.IMPN ---
Progress Note: A&P Assessment and Plan (1) Closed intertrochanteric fracture of right femur: Code(s): S72.141A - Displaced intertrochanteric fracture of right femur, initial encounter for closed fracture Status: Acute Assessment and Plan: Fell while shifting some cargo Knee x-ray changes of medial compartment after plasty with partial separation of the femoral component from the medial femoral condyle.? Hip and pelvis x-ray minimal medial angulation of a nondisplaced intertrochanteric fracture of the right proximal right femur. Ortho consulted POD 2 post op care per ortho Pain medications on board DVT Xarelto per ortho PT/OT Weight bearing as tolerated (2) Hypertension: Code(s): I10 - Essential (primary) hypertension Status: Acute Assessment and Plan: BP 106/61 Continue to hold the lisinopril/HCTZ Trend BP Adjust therapy as indicate (3) Hyperlipidemia: Code(s): E78.5 - Hyperlipidemia, unspecified Status: Acute Assessment and Plan: Continue home medications (4) Osteoarthritis: Code(s): M19.90 - Unspecified osteoarthritis, unspecified site Status: Acute Assessment and Plan: Continue home medications (5) New onset a-fib: Code(s): I48.91 - Unspecified atrial fibrillation Status: Acute Assessment and Plan: EKG shows Afib was regular per auscultation Repeat EKG ordered Currently on Xarelto will need to be increased in 2 weeks post op (6) Hyponatremia: Code(s): E87.1 - Hypo-osmolality and hyponatremia Status: Acute Assessment and Plan: Na 124 IV fluids given Repeat was 127 IV fluids overnight recheck in the am Time Spent With Patient Time with patient: Greater than 35 minutes Subjective Date/time seen: 06/19/22929 Interval history: 06/18/22929 Patient is doing well. He is in the chair and is not complaining of any problems. Talked to him and care coordination about home health vs outpatient rehab. He denies any chest pain, shortness of breath, nausea, vomiting, diarrhea, or constipation. He does have hyponatremia. gave fluids, however, no improvement noted and sodium remained at 127. 06/17/22 1200 Patient is doing well today. He was up in a chair. He denies any chest pain, shortness of breath, nausea, vomiting, diarrhea, constipation, weakness, and fatigue. Talked to him about his WBC. He does have an MD that follow with him. 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 Otherwise he feels ok. A repeat EKG did show new onset of afib on Xarelto that will need to be increased in roughly 4 weeks 06/16/22 1115 Patient just got back from surgery. Patient stated that he is having a little bit of pain but is doing okay. He denies any chest pain, shortness a breath, nausea, vomiting, diarrhea, constipation, weakness or fatigue. Patient did complain of a little bit of knee pain in the right leg however reiterated to him that the leg will be in pain due to the surgery that she has had. Girlfriend or was present. All questions were answered. 06/15/22? 21:32 This is 86-year-old fairly healthy male patient who came into the emergency room with complaints of right hip pain after a fall.? The patient stated that he was stacking up plastic containers of [employer] and he lost his footing and fell backwards at a ground level fall.? The patient stated that he struck his right hip in his right knee against the ground.? He denies losing consciousness.? The patient was unable to bear weight on that right leg he attempted Aleve without relief of discomfort.? His white count is 22.3.? His H&H is 13.3 and 39.4.? His sodium is 130.? He was negative for influenza A/B and COVID.? Chest x-ray was read as mild atelectasis at the lung bases.? Knee x-ray changes of medi
[2022-06-18 09:55] LABS: Basophils Absolute Auto 0.1 K/mm3 (0.0-0.1); Basophils Percent Auto 0.3 % (0.2-1.2); Eosinophils Percent Auto 0.1 % (0-4.4); Hematocrit 35.7 % (42.0-52.0); Hemoglobin 12.1 g/dL (14.0-18.0); Immature Granulocyte Percent A 0.8 % (0-0.5); Lymphocytes Absolute Auto 12.99 K/mm3 (0.9-3.2); Lymphocytes Percent Auto 51.2 % (18.3-44.2); Mean Corpuscular HGB Conc 33.9 g/dl (32-36); Mean Corpuscular Hemoglobin 31.9 pg (26-34); Mean Corpuscular Volume 94.2 fl (80-100); Mean Platelet Volume 8.9 fl (7.4-10.4); Monocytes Absolute Auto 1.5 K/mm3 (0.1-0.6); Monocytes Percent Auto 5.7 % (2.6-8.5); Neutrophils Absolute Auto 10.6 K/mm3 (1.3-6.7); Neutrophils Percent Auto 41.9 % (45.5-73.1); Platelet Count Result 178 k/mm3 (150-375); Red Blood Count 3.79 M/mm3 (4.6-6.20); Red Cell Distribution Width 13.1 % (11.5-14.5); White Blood Count 25.4 K/mm3 (4.5-10.0)
[2022-06-18 10:04] LABS: Alanine Aminotransferase 17 U/L (6-50); Albumin Level 4.1 g/dL (3.5-5.1); Alkaline Phosphatase 47 U/L (38-126); Anion Gap 6 mmol/L (8-16); Aspartate Amino Transferase 55 U/L (17-59); Bilirubin,Total 1.1 mg/dL (0.2-1.3); Blood Urea Nitrogen 18 mg/dL (9-20); Calcium 8.4 mg/dL (8.4-10.2); Carbon Dioxide 26 mmol/L (22-30); Chloride 92 mmol/L (98-107); Estimated CRCL calculation 59 ml/min; Estimated Glomerular Filt Rate > 60; Glucose 122 mg/dL (65-110); Magnesium 1.9 mg/dL (1.6-2.3); Potassium 4.5 mmol/L (3.4-5.0); Sodium 124 mmol/L (137-145)
[2022-06-18 10:45] VITALS: BP 106/61; PULSE 83; RESP 18; TEMP 36.8; O2SAT 98
--- NOTE | 2022-06-18 10:45 | PM.DS ---
DS: Admitting Diagnosis Discharge Date 06/19/22 1045 Admitting Diagnosis Acute right hip fracture DS: Discharge Diagnosis Discharge Diagnosis (1) Closed intertrochanteric fracture of right femur: Code(s): S72.141A - Displaced intertrochanteric fracture of right femur, initial encounter for closed fracture Status: Acute Assessment and Plan: Fell while shifting some cargo Knee x-ray changes of medial compartment after plasty with partial separation of the femoral component from the medial femoral condyle.? Hip and pelvis x-ray minimal medial angulation of a nondisplaced intertrochanteric fracture of the right proximal right femur. Ortho consulted POD 2 post op care per ortho Pain medications on board DVT Xarelto per ortho PT/OT Weight bearing as tolerated (2) Hypertension: Code(s): I10 - Essential (primary) hypertension Status: Acute Assessment and Plan: BP 106/61 Continue to hold the lisinopril/HCTZ Trend BP Adjust therapy as indicate (3) Hyperlipidemia: Code(s): E78.5 - Hyperlipidemia, unspecified Status: Acute Assessment and Plan: Continue home medications (4) Osteoarthritis: Code(s): M19.90 - Unspecified osteoarthritis, unspecified site Status: Acute Assessment and Plan: Continue home medications (5) New onset a-fib: Code(s): I48.91 - Unspecified atrial fibrillation Status: Acute Assessment and Plan: EKG shows Afib was regular per auscultation Repeat EKG ordered Currently on Xarelto will need to be increased in 2 weeks post op (6) Hyponatremia: Code(s): E87.1 - Hypo-osmolality and hyponatremia Status: Acute Assessment and Plan: Na 124 IV fluids given Repeat was 127 IV fluids overnight sodium remained 127 Nephrology is recommending to take sodium tabs and recheck in one week with a follow up there after DS: Summary Hospital Course Hospital Course: patient is an 86-year-old male with a past medical history of hypertension, hyperlipidemia, prostate cancer who presented to the ED after a fall. Patient was unloading some cargo and had fell backwards landing on his hip. X-rays showed nondisplaced intertrochanteric fracture of the right femur. Orthopedics was consulted and patient went for surgical repair. It was also noted in ED that patient did have AFib. This is a new finding for this patient. Currently rate has been controlled and has been controlled through the entire visit. Blood pressure has been stable on the lower end and blood pressure medicines have been held at this time. No patient has been doing well with physical therapy and is able to move around. he does have some leukocytosis however he states that it is a chronic finding for him. Did kind review some of the labs that I had available and it was elevated back in February as well. Patient stated that he has been dealing with that and has had follow up outpatient [facility] for many years. Currently patient is stable and denies any chest pain, shortness a breath, nausea, vomiting, diarrhea, constipation, weakness or fatigue. Labs and vital signs have remained stable. Patient will be going home and will need outpatient PT and OT. Sodium is noted to be low however no further labs have been available so not aware if this is acute or chronic. Patient was given IV fluids with no response and lab state around [address] Sidhu who agrees with the plan of starting salt tabs at 500 mg per day and having his labs rechecked in 1 week. Spoke to him and his girlfriend about the plan both agree and he is ready to be discharged at this time. Patient is currently on Xarelto per Ortho for DVT however will be increased and 2 weeks for atrial fibrillation And stroke prophylaxis. Currently patient is stable for discharge at this
[2022-06-18 10:57] LABS: Platelet Estimate Adequate (Adequate)
[2022-06-18 10:58] LABS: Atypical Lymphocytes Present; Schistocytes None Seen (NORMAL)
--- NOTE | 2022-06-18 12:50 | PM.PNORT ---
Progress Note: A&P Assessment and Plan (1) Closed intertrochanteric fracture of right femur: Code(s): S72.141A - Displaced intertrochanteric fracture of right femur, initial encounter for closed fracture Status: Acute Assessment and Plan: Postop day 2: ORIF right hip intertrochanteric fracture with dynamic hip screw. Patient tolerated procedure well. Was found to be in A.fib rate controlled. Found to have hyponatremia today. Pain manageable with pain medication. No numbness or tingling. Patient is very active. He may be discharged home with home health once medically stable. We had a lengthy discussion regarding postoperative wound care, limitations, expectations, and exercises. Patient shows good understanding. He has had initial physical therapy and is tolerating it well. DVT prophylaxis: Continue Xarelto. Pain medication: Percocet. Ortho instructions: Discharged home with home health. Follow up in office in 4 weeks. Call office for appointment: [facility] . Wound Care: Remove elma at 2 weeks post op. May leave water resistant Mepilex dressing on for 1 week. Change dressing if soiled. PT: Weight bearing as tolerated with a walker. DVT prophylaxis: continue Xarelto Pain medication: Oxycodone Subjective Subjective Date/Time Seen: 06/18/22 12:50 Interval history: Patient resting comfortably in bed. No complaints. Mild controlled pain. Worse with movement. Answered all questions. Review of Systems Review of Systems: All systems reviewed & are unremarkable except as noted in HPI and below Exam Narrative: 86 y/o normal weight male. No acute distress. Appears younger than stated age. Wound healing well slight yellowish drainage. Wiggles toes.? Calf nontender.? No distal edema.? Alert oriented x3.? Afebrile.? Vital signs stable.? Objective Data Vital Signs Vital Signs: Vital Signs - 24 hr 06/17/22 19:48 06/17/22 20:00 06/17/22 20:39 Temperature 98.2 F Pulse Rate 74 Respiratory Rate 18 Blood Pressure 98/48 L 100/60 Pulse Oximetry 94 Oxygen Delivery Room Air 06/18/22 00:00 06/18/22 05:50 06/18/22 10:45 Temperature 97.7 F 97.7 F 98.3 F Pulse Rate 76 81 83 Respiratory Rate 18 18 18 Blood Pressure 106/63 109/65 106/61 Pulse Oximetry 94 95 98 Oxygen Delivery Intake/Output Intake/Output: Intake & Output 06/15/22 06/16/22 06/17/22 06/18/22 23:59 23:59 23:59 23:59 Intake Total 780 1804 640 Output Total 0988 213 5979 Balance -920 1104 -660 Meds/Results Medications: Active Medications Generic Name Dose Route Start Last Admin Trade Name Freq PRN Reason Stop Dose Admin Acetaminophen 650 mg 06/16/22 10:43 06/17/22 17:09 Acetaminophen 325 Mg Tablet PO 650 mg Q6H PRN Administration Mild Pain (1-3) or Fever Cyclobenzaprine HCl 10 mg 06/16/22 10:43 Cyclobenzaprine Hcl 10 Mg Tablet PO Q8H PRN Muscle Spasm Famotidine 20 mg 06/16/22 12:00 06/18/22 08:16 Famotidine 20 Mg Tablet PO 20 mg Q12HR RYAN Administration Fentanyl Citrate 25 mcg 06/15/22 21:29 06/15/22 22:23 Fentanyl Citrate Inj (*Crx) 100 Mcg/2 Ml Vial IV PUSH 25 mcg Q4H PRN Administration Pain Rated 7-10 Fentanyl Citrate 25 mcg 06/16/22 07:48 Fentanyl Citrate Inj (*Crx) 100 Mcg/2 Ml Vial IV PUSH Q2M PRN Pain Hydralazine HCl 10 mg 06/15/22 21:30 Hydralazine Hcl 20 Mg/Ml Vial IV PUSH Q8H PRN Blood Pressure - High Lactated Ringer's 1,000 mls @ 30 mls/hr 06/15/22 17:05 06/17/22 20:06 Lr - Lactated Ringers Iv IV CONT 30 mls/hr .Q24H RYAN Administration Sodium Chloride 500 mls @ 999 mls/hr 06/18/22 12:41 Normal Saline Iv IV CONT 06/18/22 13:11 .Q31M ONE Lorazepam 0.5 mg 06/15/22 21:29 Lorazepam Inj (*Crx) 2 Mg/Ml Vial IV PUSH Q6H PRN Anxiety Naloxone HCl 0.1 mg 06/16/22 10:43 Naloxone Hcl 0.4 Mg/Ml Vial IV PUSH Q2M PRN
[2022-06-18] MEDS: SODIUM CHLORIDE 0.9% IV 500 ML 999 ML IV CONT ×2 (12:51→14:38)
[2022-06-18 13:32] LABS: Sodium 126 mmol/L (137-145)
[2022-06-18] MEDS: RIVAROXABAN 10 MG TABLET PO (17:01)
[2022-06-18 17:24] LABS: Sodium 127 mmol/L (137-145)
[2022-06-18] MEDS: SODIUM CHLORIDE 0.9% IV 1,000 ML 100 ML IV CONT (21:25)
[2022-06-18 21:42] VITALS: BP 113/57; PULSE 76; RESP 14; TEMP 37.1; O2SAT 96
[2022-06-19 05:48] VITALS: BP 122/68; PULSE 68; RESP 14; TEMP 36.4; O2SAT 94
[2022-06-19 07:35] LABS: Alanine Aminotransferase 14 U/L (6-50); Albumin Level 3.2 g/dL (3.5-5.1); Alkaline Phosphatase 40 U/L (38-126); Anion Gap 3 mmol/L (8-16); Aspartate Amino Transferase 38 U/L (17-59); Bilirubin,Total 0.8 mg/dL (0.2-1.3); Blood Urea Nitrogen 12 mg/dL (9-20); Calcium 8.1 mg/dL (8.4-10.2); Carbon Dioxide 26 mmol/L (22-30); Chloride 98 mmol/L (98-107); Estimated CRCL calculation 74 ml/min; Estimated Glomerular Filt Rate > 60; Glucose 96 mg/dL (65-110); Potassium 4.1 mmol/L (3.4-5.0); Sodium 127 mmol/L (137-145)
[2022-06-19] MEDS: FAMOTIDINE 20 MG TABLET PO (08:49)
[2022-06-19] MEDS: SODIUM CHLORIDE 500 MG TABLET PO (11:21)
[2022-06-19] MEDS: oxyCODONE HCL (*CRX) 2.5 MG TAB IR PO (11:24)
[2022-06-20 15:03] LABS: Osmolality, Urine 475 mOsm/kg (50-1200)
== END 2022-06-19 13:45 | disposition home health service (06) | DRG 481 ==
LOC: ANHED 17:16 → ANH3MEDSUR 18:27
PROVIDERS: Nurse Practitioner; Orthopaedic Surgery; Physician Assistant; Physician Assistant Surgical; Admitting Provider Chiropractor; Emergency Provider Emergency Medicine; PCP Internal Medicine; Visit Provider Nurse Practitioner
PROC: 0QS604Z Reposition Right Upper Femur with Internal Fixation Device, Open Approach (ICD-10-PCS; principal; 2022-06-16 07:30)
DX: S72.144A Nondisplaced intertrochanteric fracture of right femur, initial encounter for closed fracture (principal); E87.1 Hypo-osmolality and hyponatremia; I10 Essential (primary) hypertension; E78.5 Hyperlipidemia, unspecified; I48.91 Unspecified atrial fibrillation; Z79.01 Long term (current) use of anticoagulants; Z20.822 Contact with and (suspected) exposure to COVID-19; Z96.651 Presence of right artificial knee joint; Z96.642 Presence of left artificial hip joint; Z87.891 Personal history of nicotine dependence; Z79.899 Other long term (current) drug therapy; W01.0XXA Fall on same level from slipping, tripping and stumbling without subsequent striking against object, initial encounter
CPT/HCPCS: 36415; 71045; 73502; 73562; 80048; 80053; 81003; 82570; 83605; 83735; 83935; 84295; 84300; 84443; 84540; 85025; 86850; 86900; 86901; 87040; 87636; 93005; 97110; 97116; 97161; 97165; 97530; 97535; 99199; 99285; A9270; C1713; C1769; J0690; J1100; J1170; J2001; J2270; J2704; J3010; J7030; J7040; J7120

== ENCOUNTER 2022-12-24 12:14 | Outpatient (NON) | payer MEDICARE, SELFPAY | END 2022-12-24 12:15 | disposition home or self-care (01) | PROVIDERS: Visit Provider Nurse Practitioner | DX: D49.2 Neoplasm of unspecified behavior of bone, soft tissue, and skin (principal) | CPT/HCPCS: 88305 ==

== ENCOUNTER 2023-01-01 18:00 | Outpatient (NON) | payer MEDICARE, SELFPAY | END 2023-01-01 18:01 | disposition home or self-care (01) | PROVIDERS: Visit Provider Nurse Practitioner | DX: L57.0 Actinic keratosis (principal); L82.0 Inflamed seborrheic keratosis; L02.414 Cutaneous abscess of left upper limb; M79.89 Other specified soft tissue disorders | CPT/HCPCS: 88304 ==

== ENCOUNTER 2023-01-25 08:17 | Outpatient (CLI) | payer MEDICARE, SELFPAY ==
--- NOTE | ~2023-01-25 | XR_ITS ---
EXAMINATION: XR hip RT min 2V DATE: 01/25/2023 08:39 INDICATION: Unilateral primary osteoarthritis, right hip. TECHNIQUE: 2 views of right hip were obtained. COMPARISON: Right hip radiographs 08/08/2022 FINDINGS: There is an old healed fracture of proximal right femur with internal fixation with lateral plate, multiple screws, and femoral head/neck screw. No acute fracture. There is mild right hip oste oarthritis. There is severe lumbar spondylosis. There are brachytherapy seeds in the prostate. IMPRESSION: 1. Mild right hip osteoarthritis. Reviewed, dictated and finalized at location A.
== END 2023-01-25 08:18 | disposition home or self-care (01) ==
PROVIDERS: PCP Internal Medicine; Visit Provider Orthopaedic Surgery
DX: M16.11 Unilateral primary osteoarthritis, right hip (principal)
CPT/HCPCS: 73502

== ENCOUNTER 2023-10-22 06:59 | Observation (INO) | payer MEDICARE, SELFPAY ==
[2023-10-22] VITALS (9 sets, daily range): BP systolic 92–136; BP diastolic 44–88; PULSE 79–100; RESP 14–19; TEMP 36.5–37.2; O2SAT 94–100; BMI 23.8
--- NOTE | ~2023-10-22 | XR_ITS ---
EXAMINATION: XR hip LT 2V w AP pelvis DATE: 10/22/2023 08:25 INDICATION: Hip fracture. TECHNIQUE: An anteroposterior view of the pelvis on 2 radiographs and 2 views of left hip were obtain ed. COMPARISON: Pelvis radiograph 07/11/2022 FINDINGS: There is lumbar dextrocurvature and severe spondylosis. There is a total left hip arthropla sty in near-anatomic alignment. There is a periprosthetic fracture involving the greater trochanter i n near-anatomic alignment. There is an old healed fracture of proximal right femur with internal fixa tion with lateral plate and screws including femoral head/neck screw. There is mild right hip osteoar thritis. There are brachytherapy seeds in the prostate. IMPRESSION: 1. Total left hip arthroplasty with periprosthetic fracture involving the greater trochanter of proxi mal femur. 2. Mild right hip osteoarthritis. Reviewed, dictated and finalized at location A. IMPRESSION: 1. Total left hip arthroplasty with periprosthetic fracture involving the great er trochanter of proximal femur. 2. Mild right hip osteoarthritis.
--- NOTE | ~2023-10-22 | XR_ITS ---
EXAMINATION: XR elbow LT min 3V DATE: 10/22/2023 08:25 INDICATION: Left elbow injury. Fall. TECHNIQUE: 4 views of left elbow were obtained. COMPARISON: None. FINDINGS: Bone alignment is normal. No fracture. Joint spaces are normal. No elbow joint effusion. IMPRESSION: 1. No fracture. Reviewed, dictated and finalized at location A. IMPRESSION: 1. No fracture.
--- NOTE | ~2023-10-22 | XR_ITS ---
EXAMINATION: XR chest 1V DATE: 10/22/2023 08:25 INDICATION: Fall. TECHNIQUE: A single frontal view of the chest was obtained. COMPARISON: Chest single view 06/15/2022 FINDINGS: Calcified left lung nodules and calcified left hilar lymph nodes are consistent with old gr anulomatous disease. There is mild elevation of left hemidiaphragm. There is mild atelectasis at left lung base. No pleural effusion or pneumothorax. The heart size is normal. 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 IMPRESSION: 1. Chronic mild elevation of left hemidiaphragm with mild atelectasis at left lung base. Reviewed, dictated and finalized at location A. IMPRESSION: 1. Chronic mild elevation of left hemidiaphragm with mild atelectasis at left l ramon base.
--- NOTE | 2023-10-22 07:34 | ECG_ITS ---
SEE SCANNED COPY FOR CONFIRMED REPORT MTDD
--- NOTE | 2023-10-22 07:41 | ED.FALL ---
HPI - Fall General Chief Complaint: Fall Stated Complaint: hip pain Time Seen by Provider: 10/22/23 07:00 History of Present Illness HPI Narrative: 88-year-old male present to the emergency department for evaluation for left hip pain after having a ground level fall. Patient states he was in the garage and turned around quickly causing himself to lose his balance and landed on his left side. Patient denies striking his head denies any loss consciousness but patient states he did land on his left elbow and did injure his left hip. Patient was unable to move his left leg secondary to pain so called EMS. Patient arrived to the emergency department by EMS and does have a externally rotated and shortened left leg. Patient's only complaint is left hip. Patient does have a prior history of left hip repair approximately 15 years ago. Patient is Eliquis for atrial fibrillation. Patient also has a prior history of a intertrochanteric fracture the right. Related Data Home Medications Medication Instructions Recorded Confirmed lisinopril 20 1 tablet PO DAILY 06/15/22 10/22/23 mg-hydrochlorothiazide 12.5 mg tablet acetaminophen 325 mg tablet 650 mg PO DAILY 10/22/23 10/22/23 apixaban 2.5 mg tablet (Eliquis) 2.5 mg PO DAILY 10/22/23 10/22/23 Allergies Allergy/AdvReac Type Severity Reaction Status Date / Time No Known Allergies Allergy Verified 10/22/23 07:55 Review of Systems Review of Systems: All systems reviewed & are unremarkable except as noted in HPI and below PMFSH Past Medical History Medical History Chronic anticoagulation Hyperlipidemia Hypertension Osteoarthritis Paroxysmal atrial fibrillation Prostate cancer Surgical History Surgical History History of cataract extraction History of colonoscopy with polypectomy History of hip surgery (06/16/22) ORIF right hip intertrochanteric fracture with dynamic hip screw. History of left hip replacement History of partial knee replacement (07/04/18) Right History of prostatectomy History of tonsillectomy and adenoidectomy Family History Family History Mother Family history of arthritis Sibling Cerebrovascular accident Sibling Brain cancer Social History Social History Social History: Surrogate medical decision maker: Dee Zelaya, daughter. Code status: Full code. Smoking status: Former smoker Alcohol intake: current Drinks per week: 14 Substance use: never Last use: 2 beers per day and 1 glass of wine Do You Feel Safe in your Home?: Yes Lack of Transportation: No Lack of Food: Never True Current Housing: I Have Housing Concerned About Future Housing: No Difficulty Paying Gas/Electric Bills: No Difficulty Paying for Meds: No Currently Unemployed: No Education: High School Diploma/GED Difficulty w/ Childcare or Family Care: No Additional living arrangements comments: . Two children. Additional occupation/education comments: Retired from [employer]. Spiritual care concerns: No Exam Narrative: APPEARANCE: Well appearing, no pain, no distress, well-nourished. HEAD: normocephalic, atraumatic. EYES: PERRLA/EOMI, conjunctivae clear. NOSE: Normal no drainage EARS:TMS clear with good light reflex. THROAT: Pharynx clear, no exudate. NECK: Supple. No adenopathy, no masses. RESPIRATORY: Airway patent, respirations nonlabored. Clear to auscultation bilaterally, no rales, rhonchi, wheezing. CARDIOVASCULAR: Regular rate and rhythm without murmurs rubs or gallops. ABDOMINAL: Soft, nontender, nondistended, normal bowel sounds MUSCULOSKELETAL: Pain in left hip and unable to move left leg due to pain, bilateral lower extremity edema which patient states that his baseline NEURO: Alert. Cranial ner
[2023-10-22] MEDS: fentaNYL CITRATE INJ (*CRX) 100 MCG/2 ML VIAL 50 MCG IV PUSH (07:45)
[2023-10-22] MEDS: CYCLOBENZAPRINE HCL 10 MG TABLET PO (07:46)
[2023-10-22 08:42] LABS: Basophils Absolute Auto 0.1 K/mm3 (0.0-0.1); Basophils Percent Auto 0.3 % (0.2-1.2); Eosinophils Absolute Auto 0.1 K/mm3 (0-0.3); Eosinophils Percent Auto 0.3 % (0-4.4); Hematocrit 37.1 % (42.0-52.0); Hemoglobin 12.1 g/dL (14.0-18.0); Immature Granulocyte Absolute 0.09 K/mm3 (0.00-0.031); Immature Granulocyte Percent A 0.5 % (0-0.5); Lymphocytes Absolute Auto 9.08 K/mm3 (0.9-3.2); Lymphocytes Percent Auto 49.5 % (18.3-44.2); Mean Corpuscular HGB Conc 32.6 g/dl (32-36); Mean Corpuscular Hemoglobin 31.8 pg (26-34); Mean Corpuscular Volume 97.6 fl (80-100); Mean Platelet Volume 8.9 fl (7.4-10.4); Monocytes Absolute Auto 1.1 K/mm3 (0.1-0.6); Monocytes Percent Auto 6.2 % (2.6-8.5); Neutrophils Percent Auto 43.2 % (45.5-73.1); Platelet Count Result 218 k/mm3 (150-375); Red Cell Distribution Width 13.2 % (11.5-14.5); White Blood Count 18.4 K/mm3 (4.5-10.0)
[2023-10-22 08:54] LABS: Alanine Aminotransferase 10 U/L (6-50); Albumin Level 4.2 g/dL (3.5-5.1); Alkaline Phosphatase 60 U/L (38-126); Anion Gap 8 mmol/L (4-12); Aspartate Amino Transferase 17 U/L (17-59); Bilirubin,Total 0.6 mg/dL (0.2-1.3); Blood Urea Nitrogen 33 mg/dL (9-20); Calcium 9.8 mg/dL (8.4-10.2); Carbon Dioxide 25 mmol/L (22-30); Chloride 99 mmol/L (98-107); Estimated CRCL calculation 47 ml/min; Estimated Glomerular Filt Rate > 60; Glucose 105 mg/dL (65-110); Sodium 132 mmol/L (137-145)
[2023-10-22 08:55] LABS: INR 1.1
[2023-10-22 08:56] LABS: Partial Thromboplastin Time 30.4 Seconds (22.3-36.8)
[2023-10-22] MEDS: HYDROcodone/acetaminophen (*CRX) 10-325 MG TABLET 1 TAB PO (10:18)
--- NOTE | 2023-10-22 12:55 | PM.CNOR ---
Assessment and Plan Assessment and plan (1) Intertrochanteric fracture of left hip: Code(s): S72.142A - Displaced intertrochanteric fracture of left femur, initial encounter for closed fracture <ILDEFONSO Millre - Last Filed: 10/22/23 16:19> Status: Acute <ILDEFONSO Miller - Last Filed: 10/22/23 16:19> (2) History of total left hip arthroplasty: Code(s): Z96.642 - Presence of left artificial hip joint <ILDEFONSO Miller - Last Filed: 10/22/23 16:19> Status: Acute <ILDEFONSO Miller - Last Filed: 10/22/23 16:19> Assessment and Plan: Non-displaced periprosthetic avulsion fracture of the greater trochanter left hip. The hip prosthesis is well ingrown. After discussion of the condition and treatment options. We agree to treat conservatively. Risks associated with the fracture include displacement that may cause a permanent limp due to abductor weakness, nonunion, and prosthetic loosening. May partial weight bear with a walker, with caution. Limit activity, primarily transfers, for the first 3-[address] limited weight on the leg to minimize the risk of displacement. Good candidate for discharge to home, depending on how he does with therapy tomorrow. <Nacho Conley MD - Last Filed: 10/22/23 16:40> History of Present Illness HPI Consult date: 10/22/23 <ILDEFONSO Miller - Last Filed: 10/22/23 16:19> 10/22/23 <Nacho Conley MD - Last Filed: 10/22/23 16:40> Chief complaint: Left Hip Fracture <ILDEFONSO Miller - Last Filed: 10/22/23 16:19> Narrative: 88-year-old male was admitted to the hospital with a left hip pre-prosthetic fracture due to a ground level fall. He was in the garage and turned around quickly, lost his balance and landed on his left side.? No other fracture, injury or loss of consciousness. Patient does have a prior history of left hip repair approximately 15 years ago.? Patient is Eliquis for atrial fibrillation. Also ORIF right hip intertrochanteric fracture with dynamic hip screw by Dr. Conley in May 2022. <ILDEFONSO Miller - Last Filed: 10/22/23 16:19> [facility] Past Medical History Medical History: Medical History Chronic anticoagulation Hyperlipidemia Hypertension Osteoarthritis Paroxysmal atrial fibrillation Prostate cancer <ILDEFONSO Miller - Last Filed: 10/22/23 16:19> Surgical History Surgical History: Surgical History History of cataract extraction History of colonoscopy with polypectomy History of hip surgery (06/16/22) ORIF right hip intertrochanteric fracture with dynamic hip screw. History of left hip replacement History of partial knee replacement (07/04/18) Right History of prostatectomy History of tonsillectomy and adenoidectomy <ILDEFONSO Miller - Last Filed: 10/22/23 16:19> Family History Family History: Family History Mother Family history of arthritis Sibling Cerebrovascular accident Sibling Brain cancer <ILDEFONSO Miller - Last Filed: 10/22/23 16:19> Social History Social History: Social History Social History: Surrogate medical decision maker: Dee Keending, daughter. Code status: Full code. Smoking status: Former smoker Alcohol intake: current Drinks per week: 14 Substance use: never Last use: 2 beers per day and 1 glass of wine Do You Feel Safe in your Home?: Yes Lack of Transportation: No Lack of Food: Never True Current Housing: I Have Housing Concerned About Future Housing: No Difficulty Paying Gas/Electric Bills: No Difficulty Paying for Meds: No Currently Unemployed: No Education: High School Diploma/GED Difficulty w/ C
--- NOTE | 2023-10-22 13:54 | PM.IMHP ---
H&P: HPI History of Present Illness Date/Time: 10/22/23 13:55 Chief Complaint: Left hip and elbow pain after a fall. Narrative: This is a pleasant 88-year-old gentleman with paroxysmal atrial fibrillation on chronic anticoagulation, hypertension, osteoarthritis, and history of prostate cancer who presented to the emergency department via EMS from home for evaluation of left hip and elbow pain after a fall. The patient provides the following history. He and his significant other and children had plans to go to [place], [place] today. Not long prior to arrival he was pushing his suitcase in the garage supported in the car when he lost his footing and landed on his left side. He had some pain in his left elbow but more pain in the left hip. He was unable to move much or try to even get himself up due to the pain in the hip. There was no loss of consciousness in the fall and he reports it was purely mechanical. In the ED: He was afebrile on arrival with stable vital signs. Vital signs were stable on arrival. Labs were significant for WBC count of 18.4 (43.2% neutrophils and 49.5% lymphocytes on automated differential), hemoglobin 12.1, platelet 218, INR 1.1, sodium 132, BUN 23, creatinine 1.10. Chest x-ray showed chronic mild elevation of left hemidiaphragm with atelectasis at the left lung base. Left elbow x-ray was normal. Hip and pelvis x-ray showed total hip left arthroplasty with periprosthetic fracture involving the greater trochanter of the proximal femur. Review of Systems Review of Systems: 12 systems were reviewed. No syncope or near syncope. Denies recent cold and flu symptoms. No fever, chills, or sweats. Denies chest pain, pleuritic pain, and palpitations. No shortness of breath. No orthopnea or paroxysmal nocturnal dyspnea. He has chronic lower extremity edema which is unchanged. No nausea, vomiting, diarrhea, or dysuria. Except as documented, all other systems were reviewed and are negative. [facility] Past Medical History Medical History Chronic anticoagulation Hyperlipidemia Hypertension Osteoarthritis Paroxysmal atrial fibrillation Prostate cancer Surgical History Surgical History History of cataract extraction History of colonoscopy with polypectomy History of hip surgery (06/16/22) ORIF right hip intertrochanteric fracture with dynamic hip screw. History of left hip replacement History of partial knee replacement (07/04/18) Right History of prostatectomy History of tonsillectomy and adenoidectomy Family History Family History Mother Family history of arthritis Sibling Cerebrovascular accident Sibling Brain cancer Social History Social History Social History: Surrogate medical decision maker: Dee Zelaya, daughter. Code status: Full code. Smoking status: Former smoker Alcohol intake: current Drinks per week: 14 Substance use: never Last use: 2 beers per day and 1 glass of wine Do You Feel Safe in your Home?: Yes Lack of Transportation: No Lack of Food: Never True Current Housing: I Have Housing Concerned About Future Housing: No Difficulty Paying Gas/Electric Bills: No Difficulty Paying for Meds: No Currently Unemployed: No Education: High School Diploma/GED Difficulty w/ Childcare or Family Care: No Additional living arrangements comments: . Two children. Additional occupation/education comments: Retired from [employer]. Spiritual care concerns: No Meds Home Medications and Allergies Home Medications Medication Instructions Recorded Confirmed Type lisinopril 20 1 tablet PO DAILY 06/15/22 10/22/23 History mg-hydrochlorothiazide 12.5 mg tablet acetaminophen 325 mg tablet 650 mg PO DAILY 10/22/23 10/22/23 His
--- NOTE | 2023-10-22 14:14 | ADMGEN ---
This patient, Jared Serrano, was admitted to Medical Room 259-. Patient/family oriented to hospital policies and general routines including ID bracelet, bed and alarms, visiting hours, pain management, procedures, bathroom and other care routines, personal items, smoking policy, room service/diet, and visiting hours. Information on how to activate the Rapid Response Team has been discussed. Patient/Family are encouraged to report perceived risks to care and to ask questions if they do not understand what they are told or what they should do.
--- NOTE | 2023-10-22 16:13 | PCPTNOTE ---
Awaiting ortho consult/recommendation prior to therapy evaluation. Will follow.
[2023-10-22] MEDS: ACETAMINOPHEN 325 MG TABLET 650 MG PO (18:02)
[2023-10-23 00:35] LABS: Bacteria Urine 4+ /hpf; Bilirubin Urine Negative (Negative); Blood Urine 3+ (Negative); Color Urine Yellow (Yellow); Glucose Urine UA Negative (Negative); Ketones Urine Negative (Negative); Leukocyte Esterase Ur 3+ LEU/UL (Negative); Nitrate Urine Positive (Negative); Non Pathogenic Casts 0-2; Protein Urine 1+ mg/dL (Negative); RBC Urine 0-2 /hpf (0-2); Specific Grav Ur 1.007 (1.001-1.035); Squamous Epithelial Cell Urine None Seen /hpf (Few); Urobilinogen Urine 0.2 mg/dL (<2.0); WBC Urine >100 /hpf (0-3); pH Urine 6.5 (5.0-9.0)
[2023-10-23] MEDS: ACETAMINOPHEN 325 MG TABLET 650 MG PO (00:40)
[2023-10-23 00:49] LABS: Appearance Urine Sl Cloudy (Clear)
[2023-10-23 00:50] LABS: Add Urine Microscopic? YES
[2023-10-23] MEDS: MELATONIN 5 MG TABLET PO (01:15)
[2023-10-23 05:25] VITALS: BP 100/55; PULSE 85; RESP 16; TEMP 36.6; O2SAT 99
[2023-10-23 05:26] LABS: Hematocrit 37.3 % (42.0-52.0); Hemoglobin 12.1 g/dL (14.0-18.0); Mean Corpuscular HGB Conc 32.4 g/dl (32-36); Mean Corpuscular Hemoglobin 31.8 pg (26-34); Mean Corpuscular Volume 98.2 fl (80-100); Mean Platelet Volume 8.8 fl (7.4-10.4); Platelet Count Result 202 k/mm3 (150-375); Red Cell Distribution Width 13.2 % (11.5-14.5)
[2023-10-23 05:40] LABS: Anion Gap 4 mmol/L (4-12); Blood Urea Nitrogen 25 mg/dL (9-20); Calcium 9.6 mg/dL (8.4-10.2); Carbon Dioxide 30 mmol/L (22-30); Chloride 100 mmol/L (98-107); Estimated CRCL calculation 51 ml/min; Estimated Glomerular Filt Rate > 60; Glucose 102 mg/dL (65-110); Magnesium 1.9 mg/dL (1.6-2.3); Potassium 4.6 mmol/L (3.4-5.0); Sodium 134 mmol/L (137-145)
--- NOTE | 2023-10-23 08:52 | PM.PNORT ---
Progress Note: A&P Assessment and Plan (1) Periprosthetic fracture around internal prosthetic left hip joint: Code(s): M97.02XA - Periprosthetic fracture around internal prosthetic left hip joint, initial encounter Status: Acute Assessment and Plan: No changes in care plan today. Will attempt to get up with therapy. Partial weight bearing with a walker. Plan for discharge home, possibly tomorrow depending on therapy.?Non-displaced periprosthetic avulsion fracture of the greater trochanter left hip. The hip prosthesis is well ingrown. Dr. Conley and the patient agree to treat conservatively. Risks associated with the fracture include displacement that may cause a permanent limp due to abductor weakness, nonunion, and prosthetic loosening. May partial weight bear with a walker, with caution. Limit activity, primarily transfers, for the first 3-[address] limited weight on the leg to minimize the risk of displacement. Subjective Subjective Date/Time Seen: 10/23/23 08:52 Interval history: Patient resting comfortably. He has not gotten up with therapy yet but plans to today. He is eager to be able to return home. He has a very supportive partner. No other complaints. Review of Systems Review of Systems: All systems reviewed & are unremarkable except as noted in HPI and below Exam Narrative: 88 y/o normal weight male. Patient is alert and oriented. Resting comfortably in bed. No acute distress. No erythema. No rashes or lesions noted. Warm, normal appearing skin. Calf nontender. Distal pulses palpable. Normal capillary refill. Patient able to move and wiggle toes. Light touch sensation intact. Objective Data Vital Signs Vital Signs: Vital Signs - 24 hr 10/22/23 10:26 10/22/23 10:59 10/22/23 14:15 Temperature 98.7 F 98.1 F Pulse Rate 95 79 Respiratory Rate 18 18 Blood Pressure 134/69 136/78 Pulse Oximetry 98 97 Oxygen Delivery Room Air 10/22/23 15:23 10/22/23 15:24 10/22/23 17:55 Temperature 97.7 F Pulse Rate 79 86 Respiratory Rate 18 16 Blood Pressure 96/49 L 97/51 L 92/50 L Pulse Oximetry 95 95 Oxygen Delivery 10/22/23 19:52 10/22/23 21:19 10/23/23 05:25 Temperature 97.9 F 97.9 F Pulse Rate 100 85 Respiratory Rate 18 16 Blood Pressure 94/44 L 100/55 L Pulse Oximetry 94 99 Oxygen Delivery Room Air Intake/Output Intake/Output: Intake & Output 10/20/23 10/21/23 10/22/23 10/23/23 23:59 23:59 23:59 23:59 Intake Total 760 250 Output Total 700 600 Balance 60 -350 Meds/Results Medications: Active Medications Generic Name Dose Route Start Last Admin Trade Name Freq PRN Reason Stop Dose Admin Acetaminophen 650 mg 10/22/23 14:07 10/23/23 00:40 Acetaminophen 325 Mg Tablet PO 650 mg Q6H PRN Administration Mild Pain (1-3) or Fever Hydrocodone Bitart/Acetaminophen 1 tab 10/22/23 14:07 Hydrocodone/Acetaminophen (*Crx) 5-325 Mg Tablet PO Q6H PRN Pain Rated 4-6 Apixaban 2.5 mg 10/23/23 09:00 Apixaban 2.5 Mg Tablet PO DAILY RYAN Morphine Sulfate 2 mg 10/22/23 22:46 Morphine Sulfate (*Crx) 2 Mg/Ml Inj IV PUSH Q4H PRN Pain Rated 7-10 Ondansetron HCl 4 mg 10/22/23 09:56 Ondansetron Inj 4 Mg/2 Ml Vial IV PUSH Q4H PRN Nausea Radiology Results: ITS Impressions Chest X-Ray 10/22/23 08:28 IMPRESSION: 1. Chronic mild elevation of left hemidiaphragm with mild atelectasis at left lung base. Hip/Pelvis X-Ray 10/22/23 08:29 IMPRESSION: 1. 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 2. Mild right hip osteoarthritis. Elbow X-Ray 10/22/23 08:32 IMPRESSION: 1. No fracture. Labs Labs: Laboratory Results - last 24 hr 10/22/23 10/23/23 10/23/23 08:32 00:21 05:16 WBC 16.0 H RBC 3.80 L Hgb 12.1 L Hct 37.3 L MCV 98.2 MCH 31.8 MCHC 32.4 RDW
[2023-10-23] MEDS: APIXABAN 2.5 MG TABLET PO (09:01)
[2023-10-23] MEDS: HYDROcodone/acetaminophen (*CRX) 5-325 MG TABLET 1 TAB PO (10:30)
[2023-10-23 10:49] VITALS: O2SAT 92
[2023-10-23 14:00] VITALS: BP 99/58; PULSE 80; RESP 17; TEMP 36.6; O2SAT 98
--- NOTE | 2023-10-23 15:12 | PM.IMPN ---
Progress Note: A&P Assessment and Plan (1) Periprosthetic fracture around internal prosthetic left hip joint: Code(s): M97.02XA - Periprosthetic fracture around internal prosthetic left hip joint, initial encounter Status: Acute Assessment and Plan: Imaging shows a periprosthetic fracture which will be managed conservatively for now. See orthopedic surgeons note for instructions. Analgesics as needed. PT and OT both recommending home health. Ortho recommending discharge possibly tomorrow. (2) Paroxysmal atrial fibrillation: Code(s): I48.0 - Paroxysmal atrial fibrillation Status: Acute Assessment and Plan: Patient currently rate controlled. Continue Eliquis at this time. (3) Chronic anticoagulation: Code(s): Z79.01 - [facility] (current) use of anticoagulants Status: Acute Assessment and Plan: Continue Eliquis (4) Hypertension: Code(s): I10 - Essential (primary) hypertension Status: Acute Assessment and Plan: continue home medication Subjective Date/time seen: 10/23/23 15:12 Interval history: patient doing well today and pain is well controlled. Waiting for PT and OT evaluation prior discharge. According to Orthopedics patient will likely be ready for discharge tomorrow. Exam Narrative: GENERAL: Comfortable, no acute distress HENMT: moist mucous membranes EYES: EOM intact b/l NECK: no lymphadenopathy RESPIRATORY: clear to auscultation, no increased respiratory effort CARDIO: irregular rhythm, rate controlled GI: soft, nontender, bowel sounds present SKIN/EXTREMITIES: Chronic bilateral lower extremity pedal edema NEURO: PROM intact, answers questions appropriately, A&O x4 Objective Data Vital Signs Vital Signs: Vital Signs - 24 hr 10/22/23 15:23 10/22/23 15:24 10/22/23 17:55 Temperature 97.7 F Pulse Rate 79 86 Respiratory Rate 18 16 Blood Pressure 96/49 L 97/51 L 92/50 L Pulse Oximetry 95 95 Oxygen Delivery 10/22/23 19:52 10/22/23 21:19 10/23/23 05:25 Temperature 97.9 F 97.9 F Pulse Rate 100 85 Respiratory Rate 18 16 Blood Pressure 94/44 L 100/55 L Pulse Oximetry 94 99 Oxygen Delivery Room Air 10/23/23 10:34 10/23/23 10:49 10/23/23 14:00 Temperature 97.8 F Pulse Rate 80 Respiratory Rate 17 Blood Pressure 99/58 L Pulse Oximetry 92 98 Oxygen Delivery Room Air Room Air Intake/Output Intake/Output: Intake & Output 10/20/23 10/21/23 10/22/23 10/23/23 23:59 23:59 23:59 23:59 Intake Total 760 730 Output Total 700 800 Balance 60 -70 Meds/Results Medications: Active Medications Generic Name Dose Route Start Last Admin Trade Name Freq PRN Reason Stop Dose Admin Acetaminophen 650 mg 10/22/23 14:07 10/23/23 00:40 Acetaminophen 325 Mg Tablet PO 650 mg Q6H PRN Administration Mild Pain (1-3) or Fever Hydrocodone Bitart/Acetaminophen 1 tab 10/22/23 14:07 10/23/23 10:30 Hydrocodone/Acetaminophen (*Crx) 5-325 Mg Tablet PO 1 tab Q6H PRN Administration Pain Rated 4-6 Apixaban 2.5 mg 10/23/23 09:00 10/23/23 09:01 Apixaban 2.5 Mg Tablet PO 2.5 mg DAILY RYAN Administration Morphine Sulfate 2 mg 10/22/23 22:46 Morphine Sulfate (*Crx) 2 Mg/Ml Inj IV PUSH Q4H PRN Pain Rated 7-10 Ondansetron HCl 4 mg 10/22/23 09:56 Ondansetron Inj 4 Mg/2 Ml Vial IV PUSH Q4H PRN Nausea Radiology Results: ITS Impressions Chest X-Ray 10/22/23 08:28 IMPRESSION: 1. Chronic mild elevation of left hemidiaphragm with mild atelectasis at left lung base. Hip/Pelvis X-Ray 10/22/23 08:29 IMPRESSION: 1. 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 2. Mild right hip osteoarthritis. Elbow X-Ray 10/22/23 08:32 IMPRESSION: 1. No fracture. Labs Labs: Laboratory Results - last 24 hr 10/23/23 10/23/23 00:21 05:16 WB
[2023-10-23 19:39] VITALS: PULSE 80; RESP 17; O2SAT 98
[2023-10-23 21:32] VITALS: BP 107/57; PULSE 91; RESP 18; TEMP 36.5; O2SAT 94
[2023-10-24 05:32] LABS: Hemoglobin 12.1 g/dL (14.0-18.0); Mean Corpuscular HGB Conc 31.8 g/dl (32-36); Mean Corpuscular Hemoglobin 31.4 pg (26-34); Mean Corpuscular Volume 98.7 fl (80-100); Mean Platelet Volume 9.1 fl (7.4-10.4); Platelet Count Result 210 k/mm3 (150-375); Red Blood Count 3.85 M/mm3 (4.6-6.20); Red Cell Distribution Width 13.2 % (11.5-14.5); White Blood Count 16.8 K/mm3 (4.5-10.0)
[2023-10-24 05:35] VITALS: BP 98/64; PULSE 89; RESP 14; TEMP 36.5; O2SAT 92
[2023-10-24 05:45] LABS: Anion Gap 6 mmol/L (4-12); Blood Urea Nitrogen 24 mg/dL (9-20); Calcium 9.9 mg/dL (8.4-10.2); Carbon Dioxide 30 mmol/L (22-30); Chloride 100 mmol/L (98-107); Estimated CRCL calculation 47 ml/min; Estimated Glomerular Filt Rate > 60; Glucose 97 mg/dL (65-110); Potassium 4.7 mmol/L (3.4-5.0); Sodium 136 mmol/L (137-145)
[2023-10-24] MEDS: APIXABAN 2.5 MG TABLET PO (08:31)
[2023-10-24] MEDS: ACETAMINOPHEN 325 MG TABLET 650 MG PO (08:39)
[2023-10-24 08:52] VITALS: O2SAT 93
--- NOTE | 2023-10-24 09:50 | PM.PNORT ---
Progress Note: A&P Assessment and Plan (1) Periprosthetic fracture around internal prosthetic left hip joint: Code(s): M97.02XA - Periprosthetic fracture around internal prosthetic left hip joint, initial encounter Status: Acute Assessment and Plan: Patient did very well with formal physical therapy. Spoke with Dickson who stated patient is safe to return home. Sent Oxycodone to pharmacy. Patient tolerated oxycodone well in the hospital. He is okay for discharge when cleared medically from an orthopedic standpoint. Partial weight bearing with a walker.?Non-displaced periprosthetic avulsion fracture of the greater trochanter left hip. The hip prosthesis is well ingrown. Dr. Conley and the patient agree to treat conservatively. Risks associated with the fracture include displacement that may cause a permanent limp due to abductor weakness, nonunion, and prosthetic loosening. May partial weight bear with a walker, with caution. Limit activity, primarily transfers, for the first 3-[address] limited weight on the leg to minimize the risk of displacement. Follow up in office in 4 weeks with xrays. Subjective Subjective Date/Time Seen: 10/24/23 09:50 Interval history: Patient resting comfortably. Did very well with therapy today. He is eager to be able to return home. He has a very supportive partner. No other complaints. Minimal pain. Review of Systems Review of Systems: All systems reviewed & are unremarkable except as noted in HPI and below Exam Narrative: 88 y/o normal weight male. Patient is alert and oriented. Resting comfortably in bed. No acute distress. No erythema. No rashes or lesions noted. Warm, normal appearing skin. Calf nontender. Distal pulses palpable. Normal capillary refill. Patient able to move and wiggle toes. Light touch sensation intact. Objective Data Vital Signs Vital Signs: Vital Signs - 24 hr 10/23/23 10:34 10/23/23 10:49 10/23/23 14:00 Temperature 97.8 F Pulse Rate 80 Respiratory Rate 17 Blood Pressure 99/58 L Pulse Oximetry 92 98 Oxygen Delivery Room Air Room Air 10/23/23 19:39 10/23/23 21:32 10/24/23 05:35 Temperature 97.7 F 97.7 F Pulse Rate 80 91 89 Respiratory Rate 17 18 14 Blood Pressure 107/57 L 98/64 L Pulse Oximetry 98 94 92 Oxygen Delivery Room Air 10/24/23 08:52 Temperature Pulse Rate Respiratory Rate Blood Pressure Pulse Oximetry 93 Oxygen Delivery Room Air Intake/Output Intake/Output: Intake & Output 10/21/23 10/22/23 10/23/23 10/24/23 23:59 23:59 23:59 23:59 Intake Total 760 970 490 Output Total 700 1050 1100 Balance 60 -80 -610 Meds/Results Medications: Active Medications Generic Name Dose Route Start Last Admin Trade Name Freq PRN Reason Stop Dose Admin Acetaminophen 650 mg 10/22/23 14:07 10/24/23 08:39 Acetaminophen 325 Mg Tablet PO 650 mg Q6H PRN Administration Mild Pain (1-3) or Fever Hydrocodone Bitart/Acetaminophen 1 tab 10/22/23 14:07 10/23/23 10:30 Hydrocodone/Acetaminophen (*Crx) 5-325 Mg Tablet PO 1 tab Q6H PRN Administration Pain Rated 4-6 Apixaban 2.5 mg 10/23/23 09:00 10/24/23 08:31 Apixaban 2.5 Mg Tablet PO 2.5 mg DAILY RYAN Administration Morphine Sulfate 2 mg 10/22/23 22:46 Morphine Sulfate (*Crx) 2 Mg/Ml Inj IV PUSH Q4H PRN Pain Rated 7-10 Ondansetron HCl 4 mg 10/22/23 09:56 Ondansetron Inj 4 Mg/2 Ml Vial IV PUSH Q4H PRN Nausea Radiology Results: ITS Impressions Chest X-Ray 10/22/23 08:28 IMPRESSION: 1. Chronic mild elevation of left hemidiaphragm with mild atelectasis at left lung base. Hip/Pelvis X-Ray 10/22/23 08:29 IMPRESSION: 1. 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 2. Mild right hip osteoarthritis. Elbow X-Ray 10/22/23 08:32 IMPRESSION: 1. No fracture. Labs Labs: Laborator
--- NOTE | 2023-10-24 13:37 | PM.DS ---
DS: Admitting Diagnosis Discharge Date 10/24/23 Admitting Diagnosis left hip fracture DS: Discharge Diagnosis Discharge Diagnosis (1) Periprosthetic fracture around internal prosthetic left hip joint: Code(s): M97.02XA - Periprosthetic fracture around internal prosthetic left hip joint, initial encounter Status: Acute (2) Paroxysmal atrial fibrillation: Code(s): I48.0 - Paroxysmal atrial fibrillation Status: Acute (3) Chronic anticoagulation: Code(s): Z79.01 - [facility] (current) use of anticoagulants Status: Acute (4) Hypertension: Code(s): I10 - Essential (primary) hypertension Status: Acute DS: Summary Hospital Course Hospital Course: This is a pleasant 88-year-old gentleman with paroxysmal atrial fibrillation on chronic anticoagulation, hypertension, osteoarthritis, and history of prostate cancer who presented to the emergency department via EMS from home for evaluation of left hip and elbow pain after a fall. He was unable to move much or try to even get himself up due to the pain in the hip. There was no loss of consciousness in the fall and he reports it was purely mechanical. In the ED: He was afebrile on arrival with stable vital signs. Vital signs were stable on arrival. Labs were significant for WBC count of 18.4 (43.2% neutrophils and 49.5% lymphocytes on automated differential) history of CLL, hemoglobin 12.1, platelet 218, INR 1.1, sodium 132, BUN 23, creatinine 1.10. Chest x-ray showed chronic mild elevation of left hemidiaphragm with atelectasis at the left lung base. Left elbow x-ray was normal. Hip and pelvis x-ray showed total hip left arthroplasty with periprosthetic fracture involving the greater trochanter of the proximal femur. orthopedics consulted. Orthopedics recommended a conservative management and not surgery at this time. Risks associated with the fracture include displacement that may cause a permanent limp due to abductor weakness, nonunion, and prosthetic loosening. orthopedics recommended partial weight-bearing with walker. The minute activity, primary transfers for the 1st 3-4 weeks. Patient worked with PT and OT while in the hospital and he did well with them. Patient will discharge home with home health. Recommend follow-up with Ortho in 4 weeks with repeat x-rays. Time Spent with Patient Time attestation: Total time spent providing and/or coordinating discharge services: Exam Narrative: GENERAL: Comfortable, no acute distress HENMT: moist mucous membranes EYES: EOM intact b/l NECK: no lymphadenopathy RESPIRATORY: clear to auscultation, no increased respiratory effort CARDIO: irregular rhythm, rate controlled GI: soft, nontender, bowel sounds present SKIN/EXTREMITIES: Chronic bilateral lower extremity pedal edema NEURO: PROM intact, answers questions appropriately, A&O x4 DS: Data Data Completed and Pending Labs on day of discharge: Labs from last 24 hours 10/24/23 05:05 WBC 16.8 H RBC 3.85 L Hgb 12.1 L Hct 38.0 L MCV 98.7 MCH 31.4 MCHC 31.8 L RDW 13.2 Plt Count 210 MPV 9.1 Sodium 136 L Potassium 4.7 Chloride 100 Carbon Dioxide 30 Anion Gap 6 BUN 24 H Creatinine 1.10 Estim Creat Clear Calc 47 Estimated GFR > 60 Glucose 97 Calcium 9.9 Discharge Plan Discharge Consulting providers: Nacho Conley Discharging Clinician: Yasemin Miner Patient Disposition: Home Health Service Discharge Instructions: Per Care Coordination Patient has been accepted to have [facility] for RN, PT, OT [phone] RN please fax completed discharge instructions to [phone] Ortho instructions: Xray and follow up in 4 weeks. Call for appointment. May partial weight bear with a walker, with caution. Limit activity, primarily transfers, for the first 3-[address] limited weight on the leg to minimize the risk of displacement. Discharge disposition: Take med
== END 2023-10-24 14:48 | disposition home health service (06) ==
LOC: ANHED 07:37 → ANH2MED 10:12
PROVIDERS: Internal Medicine Critical Care Medicine; Physician Assistant; Admitting Provider Internal Medicine; Emergency Provider Emergency Medicine; PCP Internal Medicine; Visit Provider Internal Medicine
DX: S72.115A Nondisplaced fracture of greater trochanter of left femur, initial encounter for closed fracture (principal); M97.02XA Periprosthetic fracture around internal prosthetic left hip joint, initial encounter; M25.522 Pain in left elbow; W18.30XA Fall on same level, unspecified, initial encounter; I48.91 Unspecified atrial fibrillation; I10 Essential (primary) hypertension; E78.5 Hyperlipidemia, unspecified; I48.0 Paroxysmal atrial fibrillation; Z85.46 Personal history of malignant neoplasm of prostate; Z79.01 Long term (current) use of anticoagulants; Z87.891 Personal history of nicotine dependence; Z79.899 Other long term (current) drug therapy
CPT/HCPCS: 36415; 71045; 73080; 73502; 80048; 80053; 81001; 83735; 85025; 85027; 85610; 85730; 87077; 87086; 87088; 87186; 93005; 96374; 97110; 97161; 97166; 97530; 97535; 99285; A9270; G0378; J3010

== ENCOUNTER 2024-01-01 14:48 | Outpatient (CLI) | payer MEDICARE, SELFPAY ==
--- NOTE | ~2024-01-01 | XR_ITS ---
AP view of the pelvis and AP and lateral views of the left hip Clinical history: Periprosthetic fracture COMPARISON: 11/27/2023 Findings: Left hip arthroplasty is in place, unchanged. Healing greater trochanteric fracture of the proximal left femur is noted. Prior ORIF of the proximal right femur with probable healed fracture de formity. SI joints are intact. 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 Soft tissues are unremarka ble. Impression: Healing fracture isolated to left greater trochanter. Left hip arthroplasty unchanged. Stable right hip hardware. Reviewed, dictated and finalized at location . Impression: Healing fracture isolated to left greater trochanter. Left hip arthroplasty unc hanged. Stable right hip hardware.
== END 2024-01-01 14:49 | disposition home or self-care (01) ==
PROVIDERS: PCP Internal Medicine; Visit Provider Physician Assistant Surgical
DX: S72.115D Nondisplaced fracture of greater trochanter of left femur, subsequent encounter for closed fracture with routine healing (principal); M97.02XD Periprosthetic fracture around internal prosthetic left hip joint, subsequent encounter; X58.XXXD Exposure to other specified factors, subsequent encounter; Z98.890 Other specified postprocedural states
CPT/HCPCS: 73502